=== PATIENT | male | born 1965 | race Caucasian/White ===

== ENCOUNTER → 2018-11-08 | Outpatient (CLI) | payer OTHER, SELFPAY ==
[2018-11-08 17:35] LABS: Absolute Lymphocyte Count 1.33 X10^3/ul (0.83-4.51); Absolute Neutrophil Count 3.2 X10^3/uL (2.0-7.7); Basophil# 0.01 X10^3/uL; Basophil% 0.2 % (0-1); Eosinophil# 0.05 X10^3/uL; Lymphocyte # 1.33 X10^3/ul (4.0); Lymphocyte % 26.6 % (19-41); Mean Corpuscular Hgb 30.2 pg (27.0-32.0); Mean Corpuscular Volume 86.4 fL (80-94); Monocyte# 0.44 X10^3/uL; Monocyte% 8.8 % (0-10); Neutrophil # 3.15 X10^3/uL (2.7-7.7); Platelet Count 204 K/mm3 (150-450); RBC Distribution Width CV 12.2 % (11.6-14.6); RBC Distribution Width SD 37.4 fl (35.1-43.9); Red Blood Count 4.63 M/mm3 (4.6-6.2)
[2018-11-08 17:40] LABS: POSITIVE COUNT NO; POSITIVE DIFFERENTIAL NO; POSITIVE MORPHOLOGY NO
[2018-11-08 17:59] LABS: AST(SGOT) 36 U/L (15-37); Alanine Aminotransfer ALT/SGPT 63 U/L (16-61); Albumin, Serum 3.6 g/dL (3.2-5.0); Alkaline Phosphatase 93 U/L (45-117); Anion Gap 6 (5-15); BUN 17 mg/dL (7-18); Bilirubin, Direct 0.16 mg/dL (0.00-0.30); Calcium,Total 8.5 mg/dL (8.5-10.1); Chloride 105 mmol/L (98-107); EST Glomerular Filtration Rate 82 mL/min (>60); Est Glom Filt Rate - Afr Amer 100 mL/min (>60); Globulin 3.5 g/dL (2.2-4.2); Glucose 138 mg/dL (74-106); Potassium 3.8 mmol/L (3.5-5.1); Protein, Total 7.1 g/dL (6.4-8.2); Sodium Level 139 mmol/L (136-145)
== END | disposition home or self-care (01) ==
LOC: MTLAB 15:56
PROVIDERS: Family Provider Family Medicine; PCP Family Medicine; Referring Provider Dermatology; Visit Provider Dermatology
DX: Z79.899 Other long term (current) drug therapy (principal)
CPT/HCPCS: 36415; 80048; 80076; 85025

== ENCOUNTER → 2018-11-25 | Outpatient (CLI) | payer OTHER, SELFPAY ==
[2018-11-25 17:33] LABS: Absolute Lymphocyte Count 1.47 X10^3/ul (0.83-4.51); Absolute Neutrophil Count 2.8 X10^3/uL (2.0-7.7); Eosinophil# 0.03 X10^3/uL; Eosinophils% 0.6 % (0-5); Hematocrit 39.3 % (40-54); Hemoglobin 13.8 g/dl (13.0-16.5); Lymphocyte # 1.47 X10^3/ul (4.0); Lymphocyte % 30.7 % (19-41); Mean Corp Hgb Conc 35.1 g/gl (32-36); Mean Corpuscular Hgb 30.1 pg (27.0-32.0); Mean Corpuscular Volume 85.6 fL (80-94); Monocyte% 10.4 % (0-10); Neutrophil # 2.78 X10^3/uL (2.7-7.7); Neutrophil % 58.1 % (47-70); Platelet Count 251 K/mm3 (150-450); RBC Distribution Width CV 12.3 % (11.6-14.6); RBC Distribution Width SD 37.1 fl (35.1-43.9); Red Blood Count 4.59 M/mm3 (4.6-6.2); White Blood Count 4.8 K/mm3 (4.4-11.0)
[2018-11-25 17:37] LABS: POSITIVE COUNT NO; POSITIVE DIFFERENTIAL NO; POSITIVE MORPHOLOGY NO
[2018-11-25 17:59] LABS: AST(SGOT) 35 U/L (15-37); Alanine Aminotransfer ALT/SGPT 59 U/L (16-61); Albumin, Serum 3.8 g/dL (3.2-5.0); Alkaline Phosphatase 106 U/L (45-117); Anion Gap 6 (5-15); BUN 14 mg/dL (7-18); BUN/Creat Ratio 15.2 RATIO (10-20); Bilirubin, Direct 0.15 mg/dL (0.00-0.30); Calcium,Total 8.8 mg/dL (8.5-10.1); Chloride 106 mmol/L (98-107); Creatinine, Serum 0.92 mg/dL (0.70-1.30); EST Glomerular Filtration Rate 90 mL/min (>60); Est Glom Filt Rate - Afr Amer 109 mL/min (>60); Globulin 3.7 g/dL (2.2-4.2); Glucose 100 mg/dL (74-106); Potassium 3.7 mmol/L (3.5-5.1); Protein, Total 7.5 g/dL (6.4-8.2); Sodium Level 141 mmol/L (136-145)
== END | disposition home or self-care (01) ==
LOC: MTLAB 16:53
PROVIDERS: Family Provider Family Medicine; PCP Family Medicine; Referring Provider Dermatology; Visit Provider Dermatology
DX: Z79.899 Other long term (current) drug therapy (principal)
CPT/HCPCS: 36415; 80048; 80076; 85025

== ENCOUNTER → 2020-09-04 15:39 | Outpatient (CLI) | payer OTHER, SELFPAY ==
--- NOTE | 2020-09-04 15:42 | RAD_ITS ---
STUDY: X-RAY CHEST REASON FOR EXAM: Male, 55 years old. The patient states no chest complaints. TECHNIQUE: PA and lateral views of the chest. COMPARISON: 11/25/2011. FINDINGS: The lungs are clear and expanded. There is no demonstrated pleural abnormality. Normal size heart. Normal mediastinum and rola. Normal visualized pulmonary arteries. Normal visualized aortic arch and descending thoracic aorta. Normal visualized thoracic spine. Normal visualized ribs, clavicles, and shoulders. There is no demonstrated abnormality of the visualized soft tissue structures of the upper abdomen. RAD/Chest PA and Lateral IMPRESSION: No acute cardiopulmonary disease or major interval change. Electronically Signed: Eric Lopez DO at 16:47 EST Tel [phone], Service support ,
[2020-09-04 18:02] LABS: Absolute Lymphocyte Count 1.65 X10^3/uL (0.83-4.51); Absolute Neutrophil Count 5.6 X10^3/uL (2.0-7.7); Basophil# 0.01 X10^3/uL; Basophil% 0.1 % (0-1); Eosinophil# 0.02 X10^3/uL; Eosinophils% 0.3 % (0-5); Hematocrit 40.9 % (40-54); Lymphocyte # 1.65 X10^3/ul (4.0); Lymphocyte % 20.7 % (19-41); Mean Corp Hgb Conc 34.2 g/dL (32-36); Mean Corpuscular Volume 84.9 fL (80-94); Mean Platelet Vol. 9.8 fl (6.2-12.0); Monocyte% 7.5 % (0-10); NRBC Flagged by Analyzer 0 % (0-5); Neutrophil # 5.64 X10^3/uL (2.7-7.7); Neutrophil % 70.9 % (47-70); Platelet Count 256 K/mm3 (150-450); RBC Distribution Width CV 11.9 % (11.6-14.6); RBC Distribution Width SD 36.1 fl (35.1-43.9); Red Blood Count 4.82 M/mm3 (4.6-6.2)
[2020-09-04 18:15] LABS: Erythrocyte Sedimentation Rate 41 mm/hr (0-20)
[2020-09-04 18:23] LABS: ALB/GLOB Ratio 0.9 RATIO (0.9-2.4); AST(SGOT) 18 U/L (15-37); Alanine Aminotransfer ALT/SGPT 38 U/L (16-61); Albumin, Serum 3.6 g/dL (3.2-5.0); Alkaline Phosphatase 137 U/L (45-117); Anion Gap 8 (5-15); BUN 12 mg/dL (7-18); BUN/Creat Ratio 12.8 RATIO (10-20); Calcium,Total 8.9 mg/dL (8.5-10.1); Chloride 101 mmol/L (98-107); Creatinine, Serum 0.94 mg/dL (0.70-1.30); EST Glomerular Filtration Rate 88 mL/min (>60); Est Glom Filt Rate - Afr Amer 106 mL/min (>60); Globulin 4.1 g/dL (2.2-4.2); Glucose 206 mg/dL (74-106); Potassium 3.9 mmol/L (3.5-5.1); Protein, Total 7.7 g/dL (6.4-8.2); Sodium Level 134 mmol/L (136-145)
[2020-09-05 15:03] LABS: Hepatitis B Surface Antibody Reactive; Hepatitis B Surface Antigen Non-Reactive (Nonreactive); Hepatitis C Antibody Non-Reactive (Nonreactive)
[2020-09-07 03:07] LABS: QNTFERON TB Mitogen Value > 10.00 IU/mL (.); QNTFERON TB Nil Value 0.03 IU/mL (.); QNTFERON TB1+ Ag Value 0.19 IU/mL (.); QNTFERON TB2+ Ag Value 0.15 IU/mL (.)
[2020-09-07 12:27] LABS: CCP IgG Antibodies > 250 units (0-19); QNTIFERON TB Positive Criteria Negative (Negative)
== END ==
PROVIDERS: PCP Family Medicine; Referring Provider Internal Medicine Rheumatology; Visit Provider Internal Medicine Rheumatology
DX: L40.59 Other psoriatic arthropathy (principal); L40.9 Psoriasis, unspecified; L71.9 Rosacea, unspecified; E11.9 Type 2 diabetes mellitus without complications; Z79.899 Other long term (current) drug therapy
CPT/HCPCS: 36415; 71046; 80053; 85025; 85652; 86140; 86200; 86431; 86480; 86706; 86803; 87340

== ENCOUNTER → 2020-11-16 15:25 | Outpatient (CLI) | payer OTHER, SELFPAY ==
[2020-11-16 17:26] LABS: Absolute Neutrophil Count 2.3 X10^3/uL (2.0-7.7); Basophil# 0.01 X10^3/uL; Basophil% 0.2 % (0-1); Eosinophil# 0.03 X10^3/uL; Eosinophils% 0.7 % (0-5); Hematocrit 40.7 % (40-54); Hemoglobin 13.5 g/dL (13.0-16.5); Lymphocyte % 33.9 % (19-41); Mean Corp Hgb Conc 33.2 g/dL (32-36); Mean Corpuscular Hgb 28.8 pg (27.0-32.0); Mean Corpuscular Volume 86.8 fL (80-94); Mean Platelet Vol. 9.8 fl (6.2-12.0); Monocyte# 0.55 X10^3/uL; Monocyte% 12.4 % (0-10); NRBC Flagged by Analyzer 0 % (0-5); Neutrophil % 51.9 % (47-70); Platelet Count 236 K/mm3 (150-450); RBC Distribution Width CV 12.4 % (11.6-14.6); RBC Distribution Width SD 39.4 fl (35.1-43.9); Red Blood Count 4.69 M/mm3 (4.6-6.2); White Blood Count 4.4 K/mm3 (4.4-11.0)
[2020-11-16 17:47] LABS: ALB/GLOB Ratio 1.1 RATIO (0.9-2.4); AST(SGOT) 17 U/L (15-37); Alanine Aminotransfer ALT/SGPT 36 U/L (16-61); Albumin, Serum 3.8 g/dL (3.2-5.0); Alkaline Phosphatase 108 U/L (45-117); Anion Gap 5 (5-15); BUN 15 mg/dL (7-18); BUN/Creat Ratio 17.8 RATIO (10-20); Chloride 104 mmol/L (98-107); Creatinine, Serum 0.84 mg/dL (0.70-1.30); EST Glomerular Filtration Rate 99 mL/min (>60); Est Glom Filt Rate - Afr Amer 120 mL/min (>60); Globulin 3.5 g/dL (2.2-4.2); Glucose 122 mg/dL (74-106); Potassium 3.8 mmol/L (3.5-5.1); Protein, Total 7.3 g/dL (6.4-8.2); Sodium Level 138 mmol/L (136-145)
== END ==
PROVIDERS: PCP Family Medicine; Referring Provider Internal Medicine Rheumatology; Visit Provider Internal Medicine Rheumatology
DX: M05.79 Rheumatoid arthritis with rheumatoid factor of multiple sites without organ or systems involvement (principal); L30.9 Dermatitis, unspecified; L71.9 Rosacea, unspecified; E11.9 Type 2 diabetes mellitus without complications; Z79.899 Other long term (current) drug therapy
CPT/HCPCS: 36415; 80053; 85025

== ENCOUNTER → 2021-02-14 15:33 | Outpatient (CLI) | payer OTHER, SELFPAY ==
[2021-02-14 17:41] LABS: Absolute Neutrophil Count 4.1 X10^3/uL (2.0-7.7); Basophil# 0.01 X10^3/uL; Basophil% 0.2 % (0-1); Eosinophil# 0.02 X10^3/uL; Eosinophils% 0.3 % (0-5); Hemoglobin 13.1 g/dL (13.0-16.5); Lymphocyte % 27.6 % (19-41); Mean Corp Hgb Conc 34.5 g/dL (32-36); Mean Corpuscular Hgb 29.6 pg (27.0-32.0); Mean Platelet Vol. 9.7 fl (6.2-12.0); Monocyte# 0.61 X10^3/uL; Monocyte% 9.4 % (0-10); NRBC Flagged by Analyzer 0 % (0-5); Neutrophil # 4.05 X10^3/uL (2.7-7.7); Platelet Count 275 K/mm3 (150-450); RBC Distribution Width CV 11.9 % (11.6-14.6); RBC Distribution Width SD 36.9 fl (35.1-43.9); Red Blood Count 4.42 M/mm3 (4.6-6.2); White Blood Count 6.5 K/mm3 (4.4-11.0)
[2021-02-14 18:04] LABS: AST(SGOT) 17 U/L (15-37); Alanine Aminotransfer ALT/SGPT 32 U/L (16-61); Albumin, Serum 3.7 g/dL (3.2-5.0); Alkaline Phosphatase 107 U/L (45-117); Anion Gap 9 (5-15); BUN 10 mg/dL (7-18); BUN/Creat Ratio 10.3 RATIO (10-20); Calcium,Total 8.8 mg/dL (8.5-10.1); Chloride 104 mmol/L (98-107); Creatinine, Serum 0.97 mg/dL (0.70-1.30); EST Glomerular Filtration Rate 85 mL/min (>60); Est Glom Filt Rate - Afr Amer 103 mL/min (>60); Globulin 3.7 g/dL (2.2-4.2); Glucose 109 mg/dL (74-106); Potassium 3.3 mmol/L (3.5-5.1); Protein, Total 7.4 g/dL (6.4-8.2); Sodium Level 140 mmol/L (136-145)
== END ==
PROVIDERS: PCP Family Medicine; Referring Provider Internal Medicine Rheumatology; Visit Provider Internal Medicine Rheumatology
DX: M05.79 Rheumatoid arthritis with rheumatoid factor of multiple sites without organ or systems involvement (principal); L30.9 Dermatitis, unspecified; L71.9 Rosacea, unspecified; E11.9 Type 2 diabetes mellitus without complications; Z79.899 Other long term (current) drug therapy
CPT/HCPCS: 36415; 80053; 85025

== ENCOUNTER → 2021-04-17 16:08 | Outpatient (CLI) | payer OTHER, SELFPAY ==
[2021-04-17 17:42] LABS: Absolute Lymphocyte Count 1.86 X10^3/uL (0.83-4.51); Absolute Neutrophil Count 3.5 X10^3/uL (2.0-7.7); Basophil# 0.02 X10^3/uL; Basophil% 0.3 % (0-1); Eosinophil# 0.05 X10^3/uL; Eosinophils% 0.8 % (0-5); Hemoglobin 13.3 g/dL (13.0-16.5); Lymphocyte # 1.86 X10^3/ul (0.83-4.51); Mean Corpuscular Hgb 29.8 pg (27.0-32.0); Mean Platelet Vol. 9.4 fl (6.2-12.0); Monocyte# 0.71 X10^3/uL; Monocyte% 11.5 % (0-10); NRBC Flagged by Analyzer 0 % (0-5); Neutrophil # 3.52 X10^3/uL (2.7-7.7); Neutrophil % 56.8 % (47-70); Platelet Count 240 K/mm3 (150-450); Red Blood Count 4.47 M/mm3 (4.6-6.2); White Blood Count 6.2 K/mm3 (4.4-11.0)
[2021-04-17 18:07] LABS: ALB/GLOB Ratio 0.8 RATIO (0.9-2.4); AST(SGOT) 21 U/L (15-37); Alanine Aminotransfer ALT/SGPT 39 U/L (16-61); Albumin, Serum 3.5 g/dL (3.2-5.0); Alkaline Phosphatase 121 U/L (45-117); Anion Gap 7 (5-15); BUN 13 mg/dL (7-18); BUN/Creat Ratio 15.6 RATIO (10-20); Calcium,Total 9.2 mg/dL (8.5-10.1); Chloride 100 mmol/L (98-107); Cholesterol 183 mg/dL (200); Creatinine, Serum 0.84 mg/dL (0.70-1.30); EST Glomerular Filtration Rate 100 mL/min (>60); Est Glom Filt Rate - Afr Amer 121 mL/min (>60); Globulin 4.6 g/dL (2.2-4.2); Glucose 106 mg/dL (74-106); High Density Lipoprotein 67 mg/dL; Potassium 3.6 mmol/L (3.5-5.1); Protein, Total 8.1 g/dL (6.4-8.2); Sodium Level 134 mmol/L (136-145); Triglycerides 82 mg/dL; Very Low Density Lipoprotein 16 mg/dL (5-40)
== END ==
PROVIDERS: PCP Family Medicine; Referring Provider Internal Medicine Rheumatology; Visit Provider Internal Medicine Rheumatology
DX: M05.79 Rheumatoid arthritis with rheumatoid factor of multiple sites without organ or systems involvement (principal); L60.9 Nail disorder, unspecified; L71.9 Rosacea, unspecified; E11.9 Type 2 diabetes mellitus without complications; Z79.899 Other long term (current) drug therapy
CPT/HCPCS: 36415; 80053; 80061; 85025

== ENCOUNTER → 2021-06-07 15:44 | Outpatient (CLI) | payer OTHER, SELFPAY ==
[2021-06-07 17:51] LABS: Absolute Lymphocyte Count 1.61 X10^3/uL (0.83-4.51); Absolute Neutrophil Count 2.5 X10^3/uL (2.0-7.7); Basophil# 0.02 X10^3/uL; Basophil% 0.4 % (0-1); Eosinophil# 0.09 X10^3/uL; Eosinophils% 1.8 % (0-5); Hematocrit 39.1 % (40-54); Hemoglobin 13.3 g/dL (13.0-16.5); Lymphocyte # 1.61 X10^3/ul (0.83-4.51); Lymphocyte % 32.3 % (19-41); Mean Corpuscular Hgb 29.6 pg (27.0-32.0); Mean Corpuscular Volume 87.1 fL (80-94); Mean Platelet Vol. 9.2 fl (6.2-12.0); Monocyte# 0.72 X10^3/uL; Monocyte% 14.5 % (0-10); NRBC Flagged by Analyzer 0 % (0-5); Neutrophil # 2.52 X10^3/uL (2.7-7.7); Neutrophil % 50.6 % (47-70); Platelet Count 274 K/mm3 (150-450); RBC Distribution Width CV 12.1 % (11.6-14.6); RBC Distribution Width SD 38.8 fl (35.1-43.9); Red Blood Count 4.49 M/mm3 (4.6-6.2)
[2021-06-07 18:21] LABS: ALB/GLOB Ratio 0.8 RATIO (0.9-2.4); AST(SGOT) 17 U/L (15-37); Alanine Aminotransfer ALT/SGPT 35 U/L (16-61); Albumin, Serum 3.4 g/dL (3.2-5.0); Alkaline Phosphatase 113 U/L (45-117); Anion Gap 7 (5-15); BUN 10 mg/dL (7-18); BUN/Creat Ratio 10.4 RATIO (10-20); Calcium,Total 9.1 mg/dL (8.5-10.1); Chloride 102 mmol/L (98-107); Cholesterol 180 mg/dL (200); Creatinine, Serum 0.96 mg/dL (0.70-1.30); EST Glomerular Filtration Rate 85 mL/min (>60); Est Glom Filt Rate - Afr Amer 103 mL/min (>60); Globulin 4.3 g/dL (2.2-4.2); Glucose 98 mg/dL (74-106); High Density Lipoprotein 60 mg/dL; Potassium 4.1 mmol/L (3.5-5.1); Protein, Total 7.7 g/dL (6.4-8.2); Sodium Level 137 mmol/L (136-145); Triglycerides 104 mg/dL; Very Low Density Lipoprotein 21 mg/dL (5-40)
== END ==
PROVIDERS: PCP Family Medicine; Referring Provider Internal Medicine Rheumatology; Visit Provider Internal Medicine Rheumatology
DX: M05.79 Rheumatoid arthritis with rheumatoid factor of multiple sites without organ or systems involvement (principal); L30.9 Dermatitis, unspecified; L71.9 Rosacea, unspecified; E11.9 Type 2 diabetes mellitus without complications; Z79.899 Other long term (current) drug therapy
CPT/HCPCS: 36415; 80053; 80061; 85025

== ENCOUNTER 2021-08-06 16:09 | Outpatient (CLI) | payer OTHER, SELFPAY ==
[2021-08-06 18:01] LABS: Absolute Lymphocyte Count 1.68 X10^3/uL (0.83-4.51); Absolute Neutrophil Count 2.4 X10^3/uL (2.0-7.7); Basophil# 0.02 X10^3/uL; Basophil% 0.4 % (0-1); Eosinophil# 0.04 X10^3/uL; Eosinophils% 0.8 % (0-5); Hemoglobin 13.3 g/dL (13.0-16.5); Lymphocyte # 1.68 X10^3/ul (0.83-4.51); Lymphocyte % 35.7 % (19-41); Mean Corp Hgb Conc 34.1 g/dL (32-36); Mean Corpuscular Hgb 29.2 pg (27.0-32.0); Mean Corpuscular Volume 85.5 fL (80-94); Mean Platelet Vol. 10.4 fl (6.2-12.0); Monocyte% 10.6 % (0-10); NRBC Flagged by Analyzer 0 % (0-5); Neutrophil # 2.44 X10^3/uL (2.7-7.7); Neutrophil % 51.9 % (47-70); Platelet Count 189 K/mm3 (150-450); RBC Distribution Width SD 37.2 fl (35.1-43.9); Red Blood Count 4.56 M/mm3 (4.6-6.2); White Blood Count 4.7 K/mm3 (4.4-11.0)
[2021-08-06 18:36] LABS: AST(SGOT) 27 U/L (15-37); Alanine Aminotransfer ALT/SGPT 43 U/L (16-61); Albumin, Serum 3.8 g/dL (3.2-5.0); Alkaline Phosphatase 97 U/L (45-117); Anion Gap 9 (5-15); BUN 15 mg/dL (7-18); BUN/Creat Ratio 16.8 RATIO (10-20); Calcium,Total 8.8 mg/dL (8.5-10.1); Chloride 103 mmol/L (98-107); Cholesterol 211 mg/dL (200); Creatinine, Serum 0.89 mg/dL (0.70-1.30); EST Glomerular Filtration Rate 93 mL/min (>60); Est Glom Filt Rate - Afr Amer 112 mL/min (>60); Globulin 3.8 g/dL (2.2-4.2); Glucose 96 mg/dL (74-106); High Density Lipoprotein 67 mg/dL; Potassium 4.2 mmol/L (3.5-5.1); Protein, Total 7.6 g/dL (6.4-8.2); Sodium Level 140 mmol/L (136-145); Triglycerides 91 mg/dL; Very Low Density Lipoprotein 18 mg/dL (5-40)
== END 2021-08-06 23:59 | disposition short-term general hospital (02) ==
LOC: MTLAB 16:10
PROVIDERS: PCP Family Medicine; Referring Provider Internal Medicine Rheumatology; Visit Provider Internal Medicine Rheumatology
DX: M05.79 Rheumatoid arthritis with rheumatoid factor of multiple sites without organ or systems involvement (principal); E11.9 Type 2 diabetes mellitus without complications; L30.9 Dermatitis, unspecified; L71.9 Rosacea, unspecified; Z79.899 Other long term (current) drug therapy
CPT/HCPCS: 36415; 80053; 80061; 85025

== ENCOUNTER 2021-11-19 15:57 | Outpatient (CLI) | payer OTHER, SELFPAY ==
[2021-11-19 17:37] LABS: Absolute Lymphocyte Count 2.13 X10^3/uL (0.83-4.51); Absolute Neutrophil Count 1.8 X10^3/uL (2.0-7.7); Basophil# 0.01 X10^3/uL; Basophil% 0.2 % (0-1); Eosinophil# 0.05 X10^3/uL; Eosinophils% 1.1 % (0-5); Hematocrit 35.6 % (40-54); Hemoglobin 12.3 g/dL (13.0-16.5); Lymphocyte # 2.13 X10^3/ul (0.83-4.51); Lymphocyte % 47.1 % (19-41); Mean Corp Hgb Conc 34.6 g/dL (32-36); Mean Corpuscular Hgb 29.4 pg (27.0-32.0); Mean Platelet Vol. 9.4 fl (6.2-12.0); Monocyte# 0.48 X10^3/uL; Monocyte% 10.6 % (0-10); NRBC Flagged by Analyzer 0 % (0-5); Neutrophil # 1.83 X10^3/uL (2.7-7.7); Neutrophil % 40.6 % (47-70); Platelet Count 217 K/mm3 (150-450); RBC Distribution Width SD 37.1 fl (35.1-43.9); Red Blood Count 4.19 M/mm3 (4.6-6.2); White Blood Count 4.5 K/mm3 (4.4-11.0)
[2021-11-19 17:51] LABS: AST(SGOT) 17 U/L (15-37); Alanine Aminotransfer ALT/SGPT 26 U/L (16-61); Albumin, Serum 3.6 g/dL (3.2-5.0); Alkaline Phosphatase 100 U/L (45-117); Anion Gap 4 (5-15); BUN 16 mg/dL (7-18); BUN/Creat Ratio 16.6 RATIO (10-20); Chloride 105 mmol/L (98-107); Creatinine, Serum 0.96 mg/dL (0.70-1.30); EST Glomerular Filtration Rate 85 mL/min (>60); Est Glom Filt Rate - Afr Amer 103 mL/min (>60); Globulin 3.7 g/dL (2.2-4.2); Glucose 125 mg/dL (74-106); Potassium 3.9 mmol/L (3.5-5.1); Protein, Total 7.3 g/dL (6.4-8.2); Sodium Level 137 mmol/L (136-145)
== END 2021-11-19 23:59 | disposition home or self-care (01) ==
LOC: MTLAB 15:59
PROVIDERS: PCP Family Medicine; Referring Provider Internal Medicine Rheumatology; Visit Provider Internal Medicine Rheumatology
DX: M05.79 Rheumatoid arthritis with rheumatoid factor of multiple sites without organ or systems involvement (principal); E11.9 Type 2 diabetes mellitus without complications; L30.9 Dermatitis, unspecified; L71.9 Rosacea, unspecified; Z79.899 Other long term (current) drug therapy
CPT/HCPCS: 36415; 80053; 85025

== ENCOUNTER → 2022-01-23 | Outpatient (CLI) | payer OTHER, SELFPAY ==
[2022-01-23 17:38] LABS: Absolute Lymphocyte Count 1.78 X10^3/uL (0.83-4.51); Absolute Neutrophil Count 2.6 X10^3/uL (2.0-7.7); Basophil# 0.01 X10^3/uL; Basophil% 0.2 % (0-1); Eosinophil# 0.06 X10^3/uL; Eosinophils% 1.2 % (0-5); Hematocrit 35.5 % (40-54); Hemoglobin 12.3 g/dL (13.0-16.5); Lymphocyte # 1.78 X10^3/ul (0.83-4.51); Lymphocyte % 36.6 % (19-41); Mean Corp Hgb Conc 34.6 g/dL (32-36); Mean Corpuscular Hgb 29.9 pg (27.0-32.0); Mean Corpuscular Volume 86.4 fL (80-94); Mean Platelet Vol. 9.7 fl (6.2-12.0); Monocyte# 0.42 X10^3/uL; Monocyte% 8.6 % (0-10); NRBC Flagged by Analyzer 0 % (0-5); Neutrophil # 2.57 X10^3/uL (2.7-7.7); Platelet Count 235 K/mm3 (150-450); RBC Distribution Width CV 11.9 % (11.6-14.6); RBC Distribution Width SD 38.1 fl (35.1-43.9); Red Blood Count 4.11 M/mm3 (4.6-6.2); White Blood Count 4.9 K/mm3 (4.4-11.0)
[2022-01-23 17:53] LABS: AST(SGOT) 17 U/L (15-37); Alanine Aminotransfer ALT/SGPT 25 U/L (16-61); Albumin, Serum 3.6 g/dL (3.2-5.0); Alkaline Phosphatase 104 U/L (45-117); Anion Gap 3 (5-15); BUN 9 mg/dL (7-18); BUN/Creat Ratio 9.8 RATIO (10-20); Chloride 107 mmol/L (98-107); Creatinine, Serum 0.92 mg/dL (0.70-1.30); EST Glomerular Filtration Rate 90 mL/min (>60); Est Glom Filt Rate - Afr Amer 109 mL/min (>60); Globulin 3.6 g/dL (2.2-4.2); Glucose 92 mg/dL (74-106); Potassium 3.8 mmol/L (3.5-5.1); Protein, Total 7.2 g/dL (6.4-8.2); Sodium Level 139 mmol/L (136-145)
== END | disposition home or self-care (01) ==
LOC: MTLAB 15:34
PROVIDERS: PCP Family Medicine; Referring Provider Internal Medicine Rheumatology; Visit Provider Internal Medicine Rheumatology
DX: M05.79 Rheumatoid arthritis with rheumatoid factor of multiple sites without organ or systems involvement (principal); E11.9 Type 2 diabetes mellitus without complications; Z79.899 Other long term (current) drug therapy; L30.9 Dermatitis, unspecified; L71.9 Rosacea, unspecified
CPT/HCPCS: 36415; 80053; 85025

== ENCOUNTER → 2022-04-22 | Outpatient (CLI) | payer OTHER, SELFPAY ==
[2022-04-22 17:44] LABS: Absolute Lymphocyte Count 1.48 X10^3/uL (0.83-4.51); Absolute Neutrophil Count 1.8 X10^3/uL (2.0-7.7); Basophil# 0.01 X10^3/uL; Basophil% 0.3 % (0-1); Eosinophil# 0.03 X10^3/uL; Eosinophils% 0.8 % (0-5); Hematocrit 39.2 % (40-54); Hemoglobin 13.4 g/dL (13.0-16.5); Lymphocyte # 1.48 X10^3/ul (0.83-4.51); Lymphocyte % 39.2 % (19-41); Mean Corp Hgb Conc 34.2 g/dL (32-36); Mean Corpuscular Volume 87.7 fL (80-94); Mean Platelet Vol. 9.2 fl (6.2-12.0); Monocyte# 0.49 X10^3/uL; NRBC Flagged by Analyzer 0 % (0-5); Neutrophil # 1.75 X10^3/uL (2.7-7.7); Neutrophil % 46.2 % (47-70); Platelet Count 242 K/mm3 (150-450); RBC Distribution Width CV 12.2 % (11.6-14.6); RBC Distribution Width SD 39.3 fl (35.1-43.9); Red Blood Count 4.47 M/mm3 (4.6-6.2); White Blood Count 3.8 K/mm3 (4.4-11.0)
[2022-04-22 18:38] LABS: ALB/GLOB Ratio 0.9 RATIO (0.9-2.4); AST(SGOT) 19 U/L (15-37); Alanine Aminotransfer ALT/SGPT 26 U/L (16-61); Albumin, Serum 3.7 g/dL (3.2-5.0); Alkaline Phosphatase 104 U/L (45-117); Anion Gap 8 (5-15); BUN 14 mg/dL (7-18); BUN/Creat Ratio 15.3 RATIO (10-20); Calcium,Total 9.6 mg/dL (8.5-10.1); Chloride 105 mmol/L (98-107); Creatinine, Serum 0.92 mg/dL (0.70-1.30); EST Glomerular Filtration Rate 90 mL/min (>60); Est Glom Filt Rate - Afr Amer 109 mL/min (>60); Glucose 99 mg/dL (74-106); Potassium 3.9 mmol/L (3.5-5.1); Protein, Total 7.7 g/dL (6.4-8.2); Sodium Level 140 mmol/L (136-145)
== END | disposition home or self-care (01) ==
LOC: MTLAB 16:01
PROVIDERS: PCP Family Medicine; Referring Provider Internal Medicine Rheumatology; Visit Provider Internal Medicine Rheumatology
DX: M05.79 Rheumatoid arthritis with rheumatoid factor of multiple sites without organ or systems involvement (principal); E11.9 Type 2 diabetes mellitus without complications; L30.9 Dermatitis, unspecified; L71.9 Rosacea, unspecified; Z79.899 Other long term (current) drug therapy
CPT/HCPCS: 36415; 80053; 85025

== ENCOUNTER → 2022-07-18 | Outpatient (CLI) | payer OTHER, SELFPAY ==
[2022-07-18 17:43] LABS: Absolute Neutrophil Count 1.6 X10^3/uL (2.0-7.7); Basophil# 0.02 X10^3/uL; Basophil% 0.5 % (0-1); Eosinophil# 0.03 X10^3/uL; Eosinophils% 0.7 % (0-5); Hematocrit 39.2 % (40-54); Hemoglobin 12.8 g/dL (13.0-16.5); Lymphocyte % 40.9 % (19-41); Mean Corp Hgb Conc 32.7 g/dL (32-36); Mean Corpuscular Hgb 29.6 pg (27.0-32.0); Mean Corpuscular Volume 90.7 fL (80-94); Mean Platelet Vol. 9.3 fl (6.2-12.0); Monocyte# 0.74 X10^3/uL; Monocyte% 17.8 % (0-10); NRBC Flagged by Analyzer 0 % (0-5); Neutrophil # 1.62 X10^3/uL (2.7-7.7); Neutrophil % 38.9 % (47-70); Platelet Count 337 K/mm3 (150-450); RBC Distribution Width CV 12.3 % (11.6-14.6); RBC Distribution Width SD 40.7 fl (35.1-43.9); Red Blood Count 4.32 M/mm3 (4.6-6.2); White Blood Count 4.2 K/mm3 (4.4-11.0)
[2022-07-18 18:17] LABS: AST(SGOT) 16 U/L (15-37); Alanine Aminotransfer ALT/SGPT 29 U/L (16-61); Albumin, Serum 3.5 g/dL (3.2-5.0); Alkaline Phosphatase 115 U/L (45-117); Anion Gap 6 (5-15); BUN 15 mg/dL (7-18); BUN/Creat Ratio 11.3 RATIO (10-20); Calcium,Total 8.8 mg/dL (8.5-10.1); Chloride 103 mmol/L (98-107); Creatinine, Serum 1.33 mg/dL (0.70-1.30); EST Glomerular Filtration Rate 58 mL/min (>60); Est Glom Filt Rate - Afr Amer 71 mL/min (>60); Globulin 3.6 g/dL (2.2-4.2); Glucose 111 mg/dL (74-106); Potassium 4.6 mmol/L (3.5-5.1); Protein, Total 7.1 g/dL (6.4-8.2); Sodium Level 140 mmol/L (136-145)
== END | disposition home or self-care (01) ==
LOC: MTLAB 16:00
PROVIDERS: PCP Family Medicine; Referring Provider Internal Medicine Rheumatology; Visit Provider Internal Medicine Rheumatology
DX: M05.79 Rheumatoid arthritis with rheumatoid factor of multiple sites without organ or systems involvement (principal); E11.9 Type 2 diabetes mellitus without complications; L30.9 Dermatitis, unspecified; L71.9 Rosacea, unspecified; Z79.899 Other long term (current) drug therapy
CPT/HCPCS: 36415; 80053; 85025

== ENCOUNTER → 2022-10-27 | Outpatient (CLI) | payer OTHER, SELFPAY ==
[2022-10-27 17:56] LABS: Absolute Lymphocyte Count 1.79 X10^3/uL (0.83-4.51); Absolute Neutrophil Count 2.8 X10^3/uL (2.0-7.7); Basophil# 0.02 X10^3/uL; Basophil% 0.4 % (0-1); Eosinophil# 0.06 X10^3/uL; Eosinophils% 1.1 % (0-5); Hematocrit 37.6 % (40-54); Hemoglobin 12.4 g/dL (13.0-16.5); Lymphocyte # 1.79 X10^3/ul (0.83-4.51); Lymphocyte % 33.5 % (19-41); Mean Corpuscular Hgb 29.1 pg (27.0-32.0); Mean Corpuscular Volume 88.3 fL (80-94); Mean Platelet Vol. 9.3 fl (6.2-12.0); Monocyte# 0.62 X10^3/uL; Monocyte% 11.6 % (0-10); NRBC Flagged by Analyzer 0 % (0-5); Neutrophil # 2.75 X10^3/uL (2.7-7.7); Neutrophil % 51.5 % (47-70); Platelet Count 279 K/mm3 (150-450); RBC Distribution Width CV 12.7 % (11.6-14.6); RBC Distribution Width SD 40.9 fl (35.1-43.9); Red Blood Count 4.26 M/mm3 (4.6-6.2); White Blood Count 5.3 K/mm3 (4.4-11.0)
[2022-10-27 18:48] LABS: ALB/GLOB Ratio 0.9 RATIO (0.9-2.4); AST(SGOT) 18 U/L (15-37); Alanine Aminotransfer ALT/SGPT 23 U/L (16-61); Albumin, Serum 3.4 g/dL (3.2-5.0); Alkaline Phosphatase 101 U/L (45-117); Anion Gap 5 (5-15); BUN 19 mg/dL (7-18); BUN/Creat Ratio 18.6 RATIO (10-20); Calcium,Total 9.4 mg/dL (8.5-10.1); Chloride 102 mmol/L (98-107); Creatinine, Serum 1.02 mg/dL (0.70-1.30); EST Glomerular Filtration Rate 79 mL/min (>60); Est Glom Filt Rate - Afr Amer 96 mL/min (>60); Globulin 3.9 g/dL (2.2-4.2); Glucose 118 mg/dL (74-106); Potassium 4.5 mmol/L (3.5-5.1); Protein, Total 7.3 g/dL (6.4-8.2); Sodium Level 135 mmol/L (136-145)
== END | disposition home or self-care (01) ==
PROVIDERS: PCP Family Medicine; Referring Provider Internal Medicine Rheumatology; Visit Provider Internal Medicine Rheumatology
DX: M05.79 Rheumatoid arthritis with rheumatoid factor of multiple sites without organ or systems involvement (principal); E11.9 Type 2 diabetes mellitus without complications; L30.9 Dermatitis, unspecified; L71.9 Rosacea, unspecified; Z79.899 Other long term (current) drug therapy
CPT/HCPCS: 36415; 80053; 85025

== ENCOUNTER → 2022-11-12 | Outpatient (CLI) | payer OTHER, SELFPAY ==
[2022-11-16 08:30] LABS: G6PD Quant Test 229 (127-427)
== END | disposition home or self-care (01) ==
LOC: MTLAB 17:01
PROVIDERS: PCP Family Medicine; Referring Provider Internal Medicine Rheumatology; Visit Provider Internal Medicine Rheumatology
DX: M05.79 Rheumatoid arthritis with rheumatoid factor of multiple sites without organ or systems involvement (principal); Z79.899 Other long term (current) drug therapy
CPT/HCPCS: 36415; 82955

== ENCOUNTER → 2023-01-06 | Outpatient (CLI) | payer OTHER, SELFPAY ==
[2023-01-06 17:49] LABS: Absolute Lymphocyte Count 1.45 X10^3/uL (0.83-4.51); Absolute Neutrophil Count 2.5 X10^3/uL (2.0-7.7); Basophil# 0.01 X10^3/uL; Basophil% 0.2 % (0-1); Eosinophil# 0.03 X10^3/uL; Eosinophils% 0.7 % (0-5); Hematocrit 36.3 % (40-54); Lymphocyte # 1.45 X10^3/ul (0.83-4.51); Lymphocyte % 32.3 % (19-41); Mean Corp Hgb Conc 33.1 g/dL (32-36); Mean Corpuscular Hgb 30.1 pg (27.0-32.0); Mean Platelet Vol. 9.1 fl (6.2-12.0); Monocyte% 11.1 % (0-10); NRBC Flagged by Analyzer 0 % (0-5); Neutrophil # 2.47 X10^3/uL (2.7-7.7); Platelet Count 252 K/mm3 (150-450); RBC Distribution Width CV 12.9 % (11.6-14.6); RBC Distribution Width SD 42.5 fl (35.1-43.9); Red Blood Count 3.99 M/mm3 (4.6-6.2); White Blood Count 4.5 K/mm3 (4.4-11.0)
[2023-01-06 18:37] LABS: ALB/GLOB Ratio 1.1 RATIO (0.9-2.4); AST(SGOT) 19 U/L (15-37); Alanine Aminotransfer ALT/SGPT 20 U/L (16-61); Albumin, Serum 3.7 g/dL (3.2-5.0); Alkaline Phosphatase 119 U/L (45-117); Anion Gap 4 (5-15); BUN 15 mg/dL (7-18); BUN/Creat Ratio 17.4 RATIO (10-20); Calcium,Total 8.7 mg/dL (8.5-10.1); Chloride 108 mmol/L (98-107); Creatinine, Serum 0.86 mg/dL (0.70-1.30); EST Glomerular Filtration Rate 96 mL/min (>60); Est Glom Filt Rate - Afr Amer 117 mL/min (>60); Globulin 3.4 g/dL (2.2-4.2); Glucose 108 mg/dL (74-106); Potassium 3.7 mmol/L (3.5-5.1); Protein, Total 7.1 g/dL (6.4-8.2); Sodium Level 136 mmol/L (136-145)
== END | disposition home or self-care (01) ==
LOC: MTLAB 16:14
PROVIDERS: PCP Family Medicine; Referring Provider Internal Medicine Rheumatology; Visit Provider Internal Medicine Rheumatology
DX: M05.79 Rheumatoid arthritis with rheumatoid factor of multiple sites without organ or systems involvement (principal); Z79.899 Other long term (current) drug therapy
CPT/HCPCS: 36415; 80053; 85025

== ENCOUNTER → 2023-03-31 | Outpatient (CLI) | payer OTHER, SELFPAY ==
[2023-03-31 17:34] LABS: Absolute Neutrophil Count 1.8 X10^3/uL (2.0-7.7); Basophil# 0.01 X10^3/uL; Basophil% 0.2 % (0-1); Eosinophil# 0.06 X10^3/uL; Eosinophils% 1.4 % (0-5); Hematocrit 37.9 % (40-54); Hemoglobin 12.9 g/dL (13.0-16.5); Lymphocyte % 40.4 % (19-41); Mean Corpuscular Hgb 30.2 pg (27.0-32.0); Mean Corpuscular Volume 88.8 fL (80-94); Mean Platelet Vol. 9.3 fl (6.2-12.0); Monocyte# 0.59 X10^3/uL; NRBC Flagged by Analyzer 0 % (0-5); Neutrophil # 1.81 X10^3/uL (2.7-7.7); Platelet Count 223 K/mm3 (150-450); RBC Distribution Width CV 11.9 % (11.6-14.6); RBC Distribution Width SD 38.3 fl (35.1-43.9); Red Blood Count 4.27 M/mm3 (4.6-6.2); White Blood Count 4.2 K/mm3 (4.4-11.0)
[2023-03-31 17:46] LABS: ALB/GLOB Ratio 1.1 RATIO (0.9-2.4); AST(SGOT) 20 U/L (15-37); Alanine Aminotransfer ALT/SGPT 23 U/L (16-61); Albumin, Serum 3.8 g/dL (3.2-5.0); Alkaline Phosphatase 110 U/L (45-117); Anion Gap 6 (5-15); BUN 13 mg/dL (7-18); BUN/Creat Ratio 12.5 RATIO (10-20); Chloride 104 mmol/L (98-107); Creatinine, Serum 1.04 mg/dL (0.70-1.30); EST Glomerular Filtration Rate 77 mL/min (>60); Est Glom Filt Rate - Afr Amer 94 mL/min (>60); Globulin 3.4 g/dL (2.2-4.2); Glucose 94 mg/dL (74-106); Protein, Total 7.2 g/dL (6.4-8.2); Sodium Level 138 mmol/L (136-145)
== END | disposition home or self-care (01) ==
LOC: MTLAB 15:51
PROVIDERS: PCP Family Medicine; Referring Provider Internal Medicine Rheumatology; Visit Provider Internal Medicine Rheumatology
DX: M05.79 Rheumatoid arthritis with rheumatoid factor of multiple sites without organ or systems involvement (principal); Z79.899 Other long term (current) drug therapy
CPT/HCPCS: 36415; 80053; 85025

== ENCOUNTER → 2023-07-02 | Outpatient (CLI) | payer OTHER, SELFPAY ==
[2023-07-02 17:49] LABS: Absolute Lymphocyte Count 1.75 X10^3/uL (0.83-4.51); Absolute Neutrophil Count 3.1 X10^3/uL (2.0-7.7); Basophil# 0.05 X10^3/uL; Basophil% 0.9 % (0-1); Eosinophil# 0.04 X10^3/uL; Eosinophils% 0.7 % (0-5); Hematocrit 37.9 % (40-54); Hemoglobin 12.9 g/dL (13.0-16.5); Lymphocyte # 1.75 X10^3/ul (0.83-4.51); Lymphocyte % 30.4 % (19-41); Mean Corpuscular Hgb 30.2 pg (27.0-32.0); Mean Corpuscular Volume 88.8 fL (80-94); Monocyte# 0.69 X10^3/uL; NRBC Flagged by Analyzer 0 % (0-5); Neutrophil # 3.07 X10^3/uL (2.7-7.7); Neutrophil % 53.4 % (47-70); Platelet Count 289 K/mm3 (150-450); RBC Distribution Width CV 12.1 % (11.6-14.6); RBC Distribution Width SD 39.1 fl (35.1-43.9); Red Blood Count 4.27 M/mm3 (4.6-6.2); White Blood Count 5.8 K/mm3 (4.4-11.0)
[2023-07-02 18:21] LABS: ALB/GLOB Ratio 0.9 RATIO (0.9-2.4); AST(SGOT) 21 U/L (15-37); Alanine Aminotransfer ALT/SGPT 29 U/L (16-61); Albumin, Serum 3.5 g/dL (3.2-5.0); Alkaline Phosphatase 128 U/L (45-117); Anion Gap 5 (5-15); BUN 17 mg/dL (7-18); BUN/Creat Ratio 15.9 RATIO (10-20); Calcium,Total 9.2 mg/dL (8.5-10.1); Chloride 104 mmol/L (98-107); Creatinine, Serum 1.07 mg/dL (0.70-1.30); EST Glomerular Filtration Rate 75 mL/min (>60); Est Glom Filt Rate - Afr Amer 91 mL/min (>60); Glucose 116 mg/dL (74-106); Potassium 3.9 mmol/L (3.5-5.1); Protein, Total 7.5 g/dL (6.4-8.2); Sodium Level 137 mmol/L (136-145)
== END | disposition home or self-care (01) ==
PROVIDERS: PCP Family Medicine; Referring Provider Internal Medicine Rheumatology; Visit Provider Internal Medicine Rheumatology
DX: M05.70 Rheumatoid arthritis with rheumatoid factor of unspecified site without organ or systems involvement (principal); E11.9 Type 2 diabetes mellitus without complications; L30.9 Dermatitis, unspecified; Z79.899 Other long term (current) drug therapy
CPT/HCPCS: 36415; 80053; 85025

== ENCOUNTER → 2023-08-28 | Outpatient (CLI) | payer OTHER, SELFPAY ==
--- OUTSIDE RECORDS SUMMARY | 2023-08-28 16:38 | XMS RPT_ITS | CCD ---
Author Name Unknown Address [address] [place] [address] Organization [facility] Care Team Providers Care Supervisor Photostat Name Role Phone Sharif Dash Primary Care Provider PROVIDER, UNKNOWN Referring Unavailable Sharif Dash Primary Care Unavailable Khanh Jade Attending Unavailable PROVIDER, UNKNOWN Referring Unavailable Sharif Dash Primary Care Unavailable JulianBranden donald Attending Unavailable Jimmy, Shanita Attending Unavailable Sharif Dash Primary Care Unavailable PROVIDER, UNKNOWN Referring Unavailable Mario An DO Primary Care Provider [phone] Mario An DO Primary Care Provider [phone] TAL CABRERA Attending Unavailable JUSTINA, MARIO Primary Care Unavailable TAL CABRERA Attending Unavailable MARIO AN Primary Care Unavailable MARIO AN Attending Unavailable MARIO AN Primary Care Unavailable SHANITA COURTNEY Admitting Unavailable SHANITA COURTNEY Attending Unavailable SHARIF DASH Primary Care Unavailable SHARIF DASH Attending Unavailable SHARIF DASH Primary Care Unavailable Medications Current Medications Medication Drug Class(es) Dates Sig (Normalized) Sig (Original) acetaminophen 250 mg / ibuprofen 125 mg oral tablet (3 sources) Nonsteroidal Anti-inflammatory Drug Start: 07-16-2020 Ibuprofen-Acetaminophen (ADVIL DUAL ACTION) 125-250 MG TABS 0.4 ml adalimumab 100 mg/ml auto-injector (1 source) Tumor Necrosis Factor Kennedi Start: 10-31-2020 HUMIRA PEN 40 MG/0.4ML PNKT INJECT 40MG SUBCUTANEOUSLY EVERY OTHER WEEK 0 10/31/2020 Active atorvastatin 10 mg oral tablet (7 sources) HMG-CoA Reductase Inhibitor Start: 08-27-2022 End: 10-14-2023 take 1 tablet by mouth once daily atorvastatin (Lipitor) 10 MG tablet Indications: Hypercholesterolemia Take 1 tablet (10 mg) by mouth daily. 90 tablet 1 04/17/2023 10/14/2023 Active Completed/Discontinued Medications Medication Drug Class(es) Dates Sig (Normalized) Sig (Original) acetaminophen 325 mg / HYDROcodone bitartrate 5 mg oral tablet (1 source) Opioid Agonist Start: 07-08-2020 End: 07-08-2020 HYDROcodone-acetamin ophen (NORCO) 5-325 MG per tablet 1 tablet betamethasone 0.0005 mg/mg topical ointment (13 sources) Corticosteroid Start: 11-10-2016 End: 07-08-2020 betamethasone dipropionate (DIPROLENE) 0.05 % ointment Apply 1 g topically 2 times daily Apply topically 2 times daily. 50 g 1 11/10/2016 07/08/2020 Discontinued (LIST CLEANUP) Problems Active Problems Problem Classification Problem Date Documented Date Episodic/Chronic Diabetes mellitus without complication (11 sources) Type 2 diabetes mellitus without complications; Translations: [Type 2 diabetes mellitus without complication] Onset: 10-01-2021 Chronic Disorders of lipid metabolism (10 sources) Hyperlipidemia, unspecified; Translations: [Hypercholesterolemia ] Onset: 10-01-2021 Chronic Other aftercare (4 sources) Patient encounter status; Translations: [Encounter for therapeutic drug level monitoring] 07-14-2023 Episodic Other aftercare (2 sources) Encounter for therapeutic drug level monitoring; Translations: [Encounter for therapeutic drug level monitoring] Onset: 07-14-2023 Episodic Other aftercare (2 sources) 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-steroidal anti-inflammatories (NSAID); Translations: [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-steroidal anti-inflammatories (nsaid)] Onset: 07-14-2023 Episodic Other connective tissue disease (2 sources) Presence of unspecified orthopedic joint implant; Translations: [Presence of unspecified orthopedic joint implant] Onset: 10-01-2021 Chronic Other connective tissue disease (1 source) Bursitis of right shoulder; Translations: [Bursitis of right shoulder] Episodic Other inflammatory condition of skin (14 sources) Psoriasis; Translations: [Psoriasis, unspecified] Onset: 10-26-2015 10-26-2015 Chronic Other inflammatory condition of skin (4 sources) Psoriasis, unspecified; Translations: [Psoriasis, unspecified] Onset: 10-01-2021 Chronic Other screening for suspected conditions (not mental disorders or infectious disease) (4 sources) Encounter for screening for malignant neoplasm of colon; Translations: [Encounter for screening for malignant neoplasm of prostate] Onset: 07-14-2023 Episodic Other upper respiratory disease (2 sources) Other specified disorders of nose and nasal sinuses; Translations: [Other specified disorders of nose and nasal sinuses] Onset: 05-06-2022 Episodic Other upper respiratory infections (8 sources) Chronic maxillary sinusitis; Translations: [Chronic ethmoidal sinusitis] Onset: 05-06-2022 Chronic Otitis media and related conditions (6 sources) Infection of ear; Translations: [Otitis media, unspecified, left ear] Onset: 10-01-2021 Episodic Residual codes; unclassified (3 sources) History of colonoscopy; Translations: [Other specified postprocedural states] Onset: 07-14-2023 07-14-2023 Episodic Rheumatoid arthritis and related disease (19 sources) Rheumatoid arthritis; Translations: [Rheumatoid arthritis, unspecified] Onset: 10-26-2015 10-26-2015 Chronic Unclassified (5 sources) Sprain of right wrist; Translations: [Right wrist sprain, initial encounter] Onset: 07-08-2020 07-08-2020 Unclassified (1 source) Patient encounter status; Translations: [Encounter for imaging to screen for metal prior to MRI] Unclassified (1 source) Family history of colon polyps, unspecified; Translations: [Family history of colon polyps, unspecified] Onset: 05-16-2022 Past or Other Problems Problem Classification Problem Date Documented Da te Episodic/Chronic Other aftercare (2 sources) rat exterminator (current) use of oral hypoglycemic drugs; Translations: [nursing home (current) use of oral hypoglycemic drugs] Onset: 10-01-2021 Episodic Other aftercare (2 sources) rat exterminator (current) use of systemic steroids; Translations: [rat exterminator (current) use of systemic steroids] Onset: 10-01-2021 Episodic Other aftercare (2 sources) Other marine 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 terminal 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) 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 therapy; Translations: [Other marine 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 terminal 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) drug therapy] Onset: 10-01-2021 Episodic Other ear and sense organ disorders (2 sources) Otalgia, left ear; Translations: [Otalgia, left ear] Onset: 10-01-2021 Episodic Other injuries and conditions due to external causes (2 sources) Other injury of unspecified body region, initial encounter; Translations: [Other injury of unspecified body region, initial encounter] Onset: 12-24-2022 Episodic Other upper respiratory disease (2 sources) Deviated nasal septum; Translations: [Deviated nasal septum] Onset: 08-28-2022 Episodic Other upper respiratory disease (2 sources) Hypertrophy of nasal turbinates; Translations: [Hypertrophy of nasal turbinates] Onset: 08-28-2022 Episodic Residual codes; unclassified (15 sources) Family history of polyp of colon; Translations: [Family history of colonic polyps] Onset: 07-20-2020 07-20-2020 Episodic Residual codes; unclassified (1 source) Family history of colonic polyps; Translations: [Family history of colonic polyps] Onset: 05-16-2022 Episodic Screening and history of mental health and substance abuse codes (2 sources) Personal history of nicotine dependence; Translations: [Personal history of nicotine dependence] Onset: 10-01-2021 Episodic Sprains and strains (20 sources) Shoulder strain; Translations: [Strain of muscle of upper limb] Onset: 07-08-2020 Resolved: 12-24-2022 07-08-2020 Episodic Unclassified (1 source) Family history of colon polyps, unspecified; Translations: [Family history of colon polyps, unspecified] Onset: 07-14-2023 Results Test Name Value Interpretation Reference Range Facil ity Vital Signs Date Time Vital Sign Value Performing Clinician Faci lity 07-14-2023 07:32-0500 Body height 172.7 cm Mario An [employer] Work Phone: [employer] 07-14-2023 07:32-0500 Body mass index (BMI) [Ratio] 27.52 kg/m2 Mario An [employer] Work Phone: [employer] 07-14-2023 07:32-0500 Body temperature 97.39 [degF] Mario An DO Work Phone: [employer] 07-14-2023 07:32-0500 Body weight 82.1 kg Mario Tysonjanashabana CATALAN Work Phone: [employer] 07-14-2023 07:32-0500 Diastolic blood pressure 60 mm[Hg] Mario An DO Work Phone: [facility] 07-14-2023 07:32-0500 Heart rate 88 /min Mario An DO Work Phone: [facility] 07-14-2023 07:32-0500 SaO2% (BldA) [Mass fraction] 96 % Mario An DO Work Phone: [facility] 07-14-2023 07:32-0500 Systolic blood pressure 120 mm[Hg] Mario An DO Work Phone: [facility] 04-17-2023 07:05-0400 Body height 172.7 cm Tal Johnsono PA-C Work Phone: [facility] 04-17-2023 07:05-0400 Body mass index (BMI) [Ratio] 28.07 kg/m2 Tal Cabrera PA-C Work Phone: [facility] 04-17-2023 07:05-0400 Body temperature 98.2 [degF] Tal Cabrera PA-C Work Phone: [facility] 04-17-2023 07:05-0400 Body weight 83.73 kg Tal Cabrera PA-C Work Phone: [facility] 04-17-2023 07:05-0400 Diastolic blood pressure 79 mm[Hg] Tal Johnsono PA-C Work Phone: [facility] 04-17-2023 07:05-0400 Heart rate 80 /min Tal Cabrera PA-C Work Phone: [facility] 04-17-2023 07:05-0400 SaO2% (BldA) [Mass fraction] 97 % Tal Cabrera PA-C Work Phone: [facility] 04-17-2023 07:05-0400 Systolic blood pressure 130 mm[Hg] Tal Cabrera PA-C Work Phone: [facility] 10-01-2021 17:30-0500 Body height 172.7 cm Khanh Jade MD Work Phone: [facility] 10-01-2021 17:30-0500 Body mass index (BMI) [Ratio] 27.37 kg/m2 Khanh Jade MD Work Phone: [facility] 10-01-2021 17:30-0500 Body temperature 99.5 [degF] Khanh Jade MD Work Phone: [facility] 10-01-2021 17:30-0500 Body weight 81.65 kg Khanh Jade MD Work Phone: [facility] 10-01-2021 17:30-0500 Diastolic blood pressure 85 mm[Hg] Khanh Jade MD Work Phone: [facility] 10-01-2021 17:30-0500 Heart rate 93 /min Khahn Jade MD Work Phone: [facility] 10-01-2021 17:30-0500 Respiratory rate 16 /min Khanh Jade MD Work Phone: [facility] 10-01-2021 17:30-0500 SaO2% (BldA) [Mass fraction] 98 % Khanh Jade MD Work Phone: [facility] 10-01-2021 17:30-0500 Systolic blood pressure 144 mm[Hg] Khanh Jade MD Work Phone: [facility] 07-08-2020 15:50-0500 BMI (Body Mass Index) 29.65 kg/m2 [facility] [place] 07-08-2020 15:50-0500 Body Temperature 97.81 [degF] [facility], [place] 07-08-2020 15:50-0500 Body weight 88.45 kg [facility] , [place] 07-08-2020 15:50-0500 BP Diastolic 93 mm[Hg] [facility] [place] 07-08-2020 15:50-0500 BP Systolic 167 mm[Hg] [facility] [place] 07-08-2020 15:50-0500 Height 172.7 cm [facility]legas [facility] [place] 07-08-2020 15:50-0500 Pulse (Heart Rate) 96 /min Antonio Villegas [facility], [place] 07-08-2020 15:50-0500 Pulse Oximetry 96 % [facility]legas [facility] [place] 07-08-2020 15:50-0500 Respiratory Rate 14 /min [facility] [place] Encounters Encounter Date Encounter Type Care Provider Facility Start: 08-16-2023 Refill Mario Tyson lla DO Work Phone: [facility] Start: 07-14-2023 Telephone encounter Mario Torres Junaid etrilla DO Work Phone: [facility] Medicine Procedures Date Procedure Procedure Detail Performing Clinician Start: 07-14-2023 Lipid 1996 panel - S rush or Plasma Mario Petrilla DO Work Phone: Start: 04-17-2023 Lipid 1996 panel - S rush or Plasma Mario Petrilla DO Work Phone: Start: 12-26-2021 Lipid 1996 panel - S rush or Plasma Sharif Dash DO Work Phone: Start: 05-09-2021 Radex wrist complete minimum 3 views Branden Jordan MD Work Phone: Start: 11-19-2020 Mri any jt upper ext remity w/o contrast matrl Shanita Padgett MD Work Phone: Start: 09-07-2020 Radiologic examinati on eye detect foreign body Shanita Padgett Work Phone: Start: 07-08-2020 Radex shoulder compl ete minimum 2 views Antonio Villegas Work Phone: Start: 07-08-2020 Radex wrist complete minimum 3 views Antonio Villegas Work Phone: Start: 12-05-2016 Colonoscopy Khanh alvarado MD Work Phone: Plan of Treatment Date Care Activity Detail Author Start: 12-05-2026 Screening for malign ant neoplasm of [facility] Start: 07-14-2024 Hemoglobin A1c measurement Diabetes: Hemoglobin A1C [facility] Start: 07-14-2024 Lipid panel Lipid Panel [facility] Start: 04-17-2024 Diabetic foot examination Diabetes: Foot Exam [facility] Start: 04-17-2024 Hemoglobin A1c measurement Diabetes: Hemoglobin A1C [facility] Start: 04-17-2024 Lipid panel Lipid Panel [facility] Start: 01-30-2024 Glaucoma screening Diabetes: R etinopathy Screening [facility] Start: 01-13-2024 End: 01-13-2024 Patient encounter procedure 01/13/2024 7:30 AM EDT Office Visit [facility] [address] [place] [address] Mario An DO [address] [place] [address] [facility] Start: 12-25-2023 Hemoglobin A1c measurement Diabetes: Hemoglobin A1C [facility] Start: 08-27-2023 Diabetic foot examination Diabetes: Foot Exam [facility] Start: 07-14-2023 End: 07-14-2024 Hemoglobin A1c measurement Hemoglobin A1c Lab Routine Type 2 diabetes mellitus without complication, without long-term current use of insulin ([facility]) ([facility]) Annual physical exam Expected: 07/14/2023 (Approximate), Expires: 07/14/2024 [facility] Work Phone: Immunizations Immunization Date Immunization Notes Care Provider Yojana vizcaino 07-14-2023 Influenza, Seasonal, Quadrivalent, Adjuvanted Mario An DO Work Phone: [facility] 07-14-2023 Pneumococcal Conjuga te PCV20, Pf (Prevnar 20) Mario An DO Work Phone: [facility] 07-20-2022 zoster vaccine recombinant Mario An DO Work Phone: [facility] 06-08-2022 Influenza, injectabl e, quadrivalent, preservative free Mario An DO Work Phone: [facility] 06-08-2022 influenza virus vaccine, unspecified formulation Sharif Dash DO Work Phone: [facility] 01-02-2022 zoster vaccine recombinant Mario An DO Work Phone: [facility] 08-13-2021 COVID-19, Moderna, Primary or Immunocompromised, PF, 100mcg/0.5mL Khanh Jade MD Work Phone: [facility] Work Phone: 07-31-2021 Influenza, Quadv Cristina th Beau, 3 Years And Older, IM, (Fluzone) Khanh Jade MD Work Phone: [facility] Work Phone: 12-02-2020 Moderna SARS-CoV-2 Vaccination Mario An DO Work Phone: [facility] 11-30-2020 COVID-19, Moderna, P F, 100mcg/0.5mL Branden Jordan MD [facility] Work Phone: 11-02-2020 COVID-19, Moderna, P F, 100mcg/0.5mL Branden Jordan MD Work Phone: [facility] Work Phone: Payers Date Payer Category Payer Private Health Insurance [employer] Ruthy RASHAWN PPO [id number] 2023-Present [id number] [place] [id number] Commercial [id number] 2023 Private Health Insurance [id number] 2022 Unknown 2020 Unknown [id number] 2015 Unknown [id number] 1963 Unknown [id number] 1963 Unknown [id number] 1965 Unknown [id number] Worker's Compensation Social History Date Type Detail Facility Start: 07-08-2020 End: 08-21-2022 Tobacco smoking status [facility] Former smoker [facility] End: 10-26-1999 History of tobacco use Current smoker [place], [place] End: 10-26-1999 History of tobacco use Cigarette Smoker [place], [place] Start: 07-08-2020 End: 08-13-2020 Tobacco use and exposure Never used [place], [place] Start: 07-08-2020 End: 07-14-2023 Alcohol intake Current non-drinker of alcohol (finding) [place], [place] Start: 1965 Sex Assigned At Male M [place], [place] Start: 04-07-2023 End: 04-17-2023 Exposure to SARS-CoV-2 (event) Not sure [place], [place] Start: 08-22-2020 End: 07-14-2023 Cigarettes smoked current (pack per day) - Reported [place], [place] History of tobacco use Snuff User [place] History of tobacco use Chews Tobacco [place], [place] Start: 08-26-2021 History SDOH Financial 5 [facility] Work Phone: Start: 08-26-2021 History SDOH Food Worry 1 [facility] Work Phone: Start: 08-21-2022 Tobacco use and exposure Forme r smokeless tobacco user [facility] Start: 12-24-2022 End: 07-14-2023 Tobacco use panel [facility] Start: 08-21-2022 Alcohol Comment 23 years sober [facility] Start: 05-22-2022 Gender identity Identifies as male gender (finding) [facility] Start: 05-22-2022 Sexual orientation Heterosexual (fin ding) [facility] Within the last year , have you been afraid of your partner or ex-partner? No [facility] How often to you hav e a drink containing alcohol? Never [facility] How many standard dr inks containing alcohol do you have on a typical day? Patient does not drink [facility] Do you feel stress - tense, restless, nervous, or anxious, or unable to sleep at night because your mind is troubled all the time - these days [OSQ] To some extent [facility] (I/We) worried wheth er (my/our) food would run out before (I/we) got money to buy more. Never true [facility] Medical Equipment Procedure Code Equipment Code Equipment Origin al Text Equipment Identifier Dates Test 3 times a d ay & as needed for symptoms of irregular blood glucose. Dispense sufficient amount for indicated testing frequency plus additional to accommodate PRN testing needs. E11.9 [id number] Start: 04-15-2021 End: 05-13-2021 1 each by Does n ot apply route 3 times daily E11.9 [id number] Start: 01-16-2021 Test 3 times a d ay & as needed for symptoms of irregular blood glucose. Dispense sufficient amount for indicated testing frequency plus additional to accommodate PRN testing needs. E11.9 [id number] Start: 08-20-2021 Test 3 times a d ay & as needed for symptoms of irregular blood glucose. Dispense sufficient amount for indicated testing frequency plus additional to accommodate PRN testing needs. E11.9 [id number] Start: 01-06-2022 End: 05-12-2022 TEST 3 TIMES CYRUS LY AND NEEDED FOR SYMPTOMS OF IRREGULAR BLOOD SUGAR. [id number] Start: 03-30-2023 TEST 3 TIMES CYRUS LY AND NEEDED FOR SYMPTOMS OF IRREGULAR BLOOD SUGAR. [id number] Start: 03-10-2022 End: 03-30-2023 Clinical Notes 08-21-2022 to 07-14-2023 Telephone Encounter - Jeannine Monae - 07/14/2023 3:37 PM ESTTelephone Encounter - Jeannine Monae - 07/14/2023 3:37 PM Daniel An DO - 07/14/2023 7:30 AM ESTPatient Instructions Note Date & Type Note Facility 07-14-2023 Note Referral pended for dx and doctor's signature [facility] 07-14-2023 Telephone encounter Note Referral pended for dx and doctor's signature [facility] 07-14-2023 Miscellaneous Notes Referral pended for dx and doctor's signature documented in this encounter [facility] 07-14-2023 History of Present illness Narrative Images from the original note were not included. [facility] [address] [place] [address] [address] [facility] [address] Visit type: Established Patient Reason for Visit: Follow-up (3 month med check) Assessment / Plan: Ke was seen today for follow-up. Diagnoses and all orders for this visit: Annual physical exam (Primary) - Hemoglobin A1c; Future - Lipid panel; Future - PSA Total (Screening); Future - Hemoglobin A1c - Lipid panel - PSA Total (Screening) Type 2 diabetes mellitus without complication, without long-term current use of insulin ([facility]) ([facility]) Comments: Stable, due to GI symptoms, stop metformin and increase Januvia to 100 mg daily. Call with log of glucose levels in 1 month Orders: - SITagliptin (Januvia) 100 MG tablet; Take 1 tablet (100 mg) by mouth daily for 90 doses. - Hemoglobin A1c; Future - Hemoglobin A1c Rheumatoid arthritis, involving unspecified site, unspecified whether rheumatoid factor present ([facility]) Comments: Stable, continue present rheumatologic meds Hypercholesterolemia Comments: Stable, continue atorvastatin Orders: - Lipid panel; Future - Lipid panel Family history of colonic polyps Psoriasis Encounter for monitoring NSAID therapy Comments: Stable, GI precautions discussed with meloxicam Colon cancer screening Prostate cancer screening - PSA Total (Screening); Future - PSA Total (Screening) Other orders - Flu vaccine quadrivalent, for patients ages 65+, (Fluad) preservative free - Pneumococcal conjugate vaccine 20-valent IM (PREVNAR 20) Subjective: Patient ID: Ke Sloan is a 58 y.o. male. HPI type II diabetic with lipid management and rheumatoid arthritis presents for annual exam. Past medical, past surgical, family and social history reviewed and chart updated appropriately. Presently feels well on his rheumatologic meds. Takes prednisone on a as needed basis and does notice increased blood sugars. Having some GI distress with bloating and diarrhea with metformin. Would like to know prescription options. A1c's have been improved over the last year. No change in vision or skin. No unhealing skin lesions. Psoriasis lesions have been well-controlled as well. Review of Systems does not smoke or drink. Still working full-time. Of note he is lost his wonderful this past spring due to COPD and alpha-1 antitrypsin deficiency. He denies recent earache sore throat or cough. Denies chest pain palpitations PND orthopnea claudication or edema. No heartburn or dysphagia. No abdominal pain. No bowel changes. He is overdue for colonoscopy. Needs prostate exam. Rare nocturia no postvoid dribbling hematuria dysuria. Nonhealing skin lesions. He does ask about possible Viagra use. No Known Allergies Current Outpatient Medications on File Prior to Visit Medication Sig Dispense Refill atorvastatin (Lipitor) 10 MG tablet Take 1 tablet (10 mg) by mouth daily. 90 tablet 1 betamethasone dipropionate 0.05 % cream Apply topically. ELDERBERRY PO Take 1 capsule by mouth daily. fluticasone (Flonase) 50 MCG/ACT nasal spray Administer 2 sprays into each nostril 2 times daily. Shake gently. Before first use, prime pump. After use, clean tip and replace cap. 16 g 0 loratadine (Claritin) 10 MG tablet Take 1 tablet (10 mg) by mouth daily. 30 tablet 2 meloxicam (Mobic) 7.5 MG tablet Take 7.5 mg by mouth daily. OneTouch Verio test strip TEST 3 TIMES DAILY AND NEEDED FOR SYMPTOMS OF IRREGULAR BLOOD SUGAR. 100 strip 3 predniSONE (Deltasone) 10 MG tablet Take 1 tablet by mouth as needed. 3-5 times daily as needed for flare ups sulfaSALAzine (Azulfidine) 500 MG EC tablet Take 500 mg by mouth 2 times daily. tofacitinib (Xeljanz) 10 MG tablet Take 11 mg by mouth daily. traMADol (Ultram) 50 MG tablet Take 50 mg by mouth 3 times daily as needed. [DISCONTINUED] metFORMIN (Glucophage) 500 MG tablet Take 2 tablets (1,000 mg) by mouth in the morning and 2 tablets (1,000 mg) in the evening. Take with meals. 360 tablet 1 [DISCONTINUED] SITagliptin (Januvia) 50 MG tablet Take 1 tablet (50 mg) by mouth daily. 90 tablet 1 No current facility-administered medications on file prior to visit. Patient Active Problem List Diagnosis Family history of colonic polyps RA (rheumatoid arthritis) (HCC) Psoriasis Type 2 diabetes mellitus without complication, without long-term current use of insulin (CMS/HCC) (HCC) Hypercholesterolemia H/O colonoscopy Social History Tobacco Use Smoking status: Former Packs/day: 1.50 Years: 20.00 Additional pack years: 0.00 Total pack years: 30.00 Types: Cigarettes Quit date: 10/26/1999 Years since quittin.7 Smokeless tobacco: Former Types: Snuff, Chew Substance Use Topics Alcohol use: No Comment: 23 years sober Past Surgical History: Procedure Laterality Date COLONOSCOPY 2016 Dr. Babin- due 2021 MENISCECTOMY Left 2014 George ROTATOR CUFF REPAIR Left 2007 SEPTOPLASTY 08/28/2022 [facility] BIOPSY LYMPH NODE (HISTORICAL) 2020 Right axilla VASECTOMY Family History Problem Relation Name Age of Onset Hyperlipidemia Mother COPD Mother age 78 Macular degeneration Father Kurt Diabetes Father Kurt 76 oral rx Lung cancer Father Kurt smoker No Known Problems Sister Beverly Pena Diabetes Brother Pee High Blood Pressure Brother Sharif Diabetes Brother Sharif neuropathy Accidental Brother Khoi 25 [facility] [place]: BP 120/60 Pulse 88 Temp 36.3 C (97.4 F) (Temporal) Ht 5' 8 (1.727 m) Wt 181 lb (82.1 kg) SpO2 96% BMI 27.52 kg/m Physical Exam The physical exam is generally normal. Patient appears well, alert and oriented x 3, pleasant, cooperative. Vitals are as noted. No carotid bruits. Neck supple, no abnormal adenopathy, thyroid lesions or masses. Ears, nose and throat are normal without acute findings. Lungs are clear to auscultation. Heart is regular, without murmurs, gallops or ectopy. Abdomen is soft, non tender, without masses, hepatosplenomegaly, or bruits. Normal BS evident. Extremities are normal without edema. Peripheral pulses are fair. No worrisome skin lesions. Screening neurological exam is normal without focal deficits. No skin changes. Pulses are excellent. Normal genitalia. Hernias. Rectal exam was unremarkable with normal sphincter tone, small prostate without nodules. No rectal masses. documented in this encounter [facility] 07-14-2023 Instructions Mario An DO - 07/14/2023 7:30 AM EST Call with log of glucose levels in one month documented in this encounter [facility] 04-17-2023 Evaluation + Plan note Associated Problem(s): RA (rheumatoid arthritis) ([facility]) - Chronic and stable continues to follow-up with rheumatology at baseline blood work done in January 2023 was normal. Mild chronic anemia with hemoglobin of 12.0. [facility] 04-17-2023 Miscellaneous Notes Associated Problem(s): RA (rheumatoid arthritis) ([facility]) - Chronic and stable continues to follow-up with rheumatology at baseline blood work done in January 2023 was normal. Mild chronic anemia with hemoglobin of 12.0. Associated Problem(s): Type 2 diabetes mellitus without complication, without long-term current use of insulin ([facility]) ([facility]) - Chronic and stable last hemoglobin A1c was 6.2 patient is requesting possible to minimize his medications either decreasing the metformin or switching over to Janumet. We will reassess after current A1c and make that decision. Associated Problem(s): Hypercholesterolemia - Chronic and stable we will continue on atorvastatin 10 mg daily. documented in this encounter [facility] 04-17-2023 Evaluation + Plan note Associated Problem(s): Type 2 diabetes mellitus without complication, without long-term current use of insulin ([facility]) ([facility]) - Chronic and stable last hemoglobin A1c was 6.2 patient is requesting possible to minimize his medications either decreasing the metformin or switching over to Janumet. We will reassess after current A1c and make that decision. [facility] 04-17-2023 Evaluation + Plan note Associated Problem(s): Hypercholesterolemia - Chronic and stable we will continue on atorvastatin 10 mg daily. [facility] 04-17-2023 History of Present illness Narrative Images from the original note were not included. [facility] [address] [place] [address] [address] [facility] [address] Dept: [phone] Dept Loc: [phone] Visit type: Established Patient Reason for Visit: Follow-up (4 month) and Earache (both) Assessment and Plan 1. Type 2 diabetes mellitus without complication, without long-term current use of insulin ([facility]) ([facility]) Assessment & Plan: - Chronic and stable last hemoglobin A1c was 6.2 patient is requesting possible to minimize his medications either decreasing the metformin or switching over to Janumet. We will reassess after current A1c and make that decision. Orders: - AMB POC URINE, MICROALBUMIN - Hemoglobin A1c - Diabetes Foot Exam - Lipid panel 2. Hypercholesterolemia Assessment & Plan: - Chronic and stable we will continue on atorvastatin 10 mg daily. Orders: - Lipid panel - atorvastatin (Lipitor) 10 MG tablet; Take 1 tablet (10 mg) by mouth daily., Starting Thu04/17/2023, Until Thu10/14/2023, Normal 3. Rheumatoid arthritis, involving unspecified site, unspecified whether rheumatoid factor present ([facility]) Assessment & Plan: - Chronic and stable continues to follow-up with rheumatology at baseline blood work done in January 2023 was normal. Mild chronic anemia with hemoglobin of 12.0. 4. Eustachian tube dysfunction, right Comments: Acute eustachian tube dysfunction primary on the right amenable to decongestants nasal sprays. Orders: - fluticasone (Flonase) 50 MCG/ACT nasal spray; Administer 2 sprays into each nostril 2 times daily. Shake gently. Before first use, prime pump. After use, clean tip and replace cap., Starting Thu04/17/2023, Until 04/16/2024, Normal - loratadine (Claritin) 10 MG tablet; Take 1 tablet (10 mg) by mouth daily., Starting Thu04/17/2023, Until [place] 07/16/2023, Normal Follow up in about 3 months (around 07/17/2023) for DM f/u. Subjective HPI Mr. Sloan is a 58-year-old male with an underlying history of type 2 diabetes, psoriasis and rheumatoid arthritis who presents to the office for routine checkup and evaluation. Hemoglobin A1c has been well controlled in the past. He is due for eye exam given his history of diabetes. Sees rheumatology and had routine blood work in January, Which was normal, chronic anemia hgb was 12 rest of cmp was normal. Patient does endorse some generalized arthralgias with his rheumatoid arthritis. Otherwise states he is doing well. He does report that he lost his due to complications secondary to COPD and alpha-1 antitrypsin disorder. So he still struggles with some depression from time to time but is not actively concerned about at this time. Most days he does fine he continues to work and stays active. 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 He does complain of arthritic pain in his feet but denies any numbness or tingling in his feet associate with his diabetes. He is scheduled soon to get his eye exam done. He complains today primarily of ear pain primarily in the right side with some congestion but otherwise no sore throat no dysphonia dysphagia to state the pain in the right ear occasionally radiates in the right side of his neck with no problems eating drinking or swallowing. Review of Systems Constitutional: Negative for chills and fever. HENT: Positive for congestion and ear pain. Negative for ear discharge, sinus pressure, sinus pain and sore throat. Respiratory: Negative for cough and shortness of breath. Cardiovascular: Negative for chest pain. Gastrointestinal: Negative for abdominal pain, diarrhea, nausea and vomiting. Genitourinary: Negative for difficulty urinating. Musculoskeletal: Positive for arthralgias (chronic). Negative for back pain and neck pain. Neurological: Negative for dizziness and light-headedness. All other systems reviewed and are negative. No Known Allergies Outpatient Medications Prior to Visit Medication Sig Dispense Refill metFORMIN (Glucophage) 500 MG tablet Take 2 tablets (1,000 mg) by mouth in the morning and 2 tablets (1,000 mg) in the evening. Take with meals. 360 tablet 1 SITagliptin (Januvia) 50 MG tablet Take 1 tablet (50 mg) by mouth daily. 90 tablet 1 sulfaSALAzine (Azulfidine) 500 MG EC tablet Take 500 mg by mouth 2 times daily. tofacitinib (Xeljanz) 10 MG tablet Take 11 mg by mouth daily. traMADol (Ultram) 50 MG tablet Take 50 mg by mouth 3 times daily as needed. atorvastatin (Lipitor) 10 MG tablet Take 1 tablet (10 mg) by mouth daily. 90 tablet 1 betamethasone dipropionate 0.05 % cream Apply topically. ELDERBERRY PO Take 1 capsule by mouth daily. OneTouch Verio test strip TEST 3 TIMES DAILY AND NEEDED FOR SYMPTOMS OF IRREGULAR BLOOD SUGAR. 100 strip 3 predniSONE (Deltasone) 10 MG tablet Take 1 tablet by mouth as needed. 3-5 times daily as needed for flare ups No facility-administered medications prior to visit. Past Medical History: Diagnosis Date Diabetes mellitus ([facility]) Eye exam, routine 01/29/2022 No diabetic retinopathy Family history of colonic polyps Fractures ankle, nose, left shoulder, 10 ribs HL (hearing loss) Hyperlipidemia Psoriasis 2012 Maureen Scanning Supervisor RA (rheumatoid arthritis) ([facility]) 2011 Rheumatoid arthritis ([facility]) Social History Tobacco Use Smoking status: Former Packs/day: 1.50 Years: 20.00 Pack years: 30.00 Types: Cigarettes Quit date: 10/26/1999 Years since quittin.4 Smokeless tobacco: Former Types: Snuff, Chew Substance Use Topics Alcohol use: No Comment: 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 MENISCECTOMY Left 01/31/2015 George ROTATOR CUFF REPAIR Left 08/03/2007 SEPTOPLASTY 08/28/2022 US BIOPSY LYMPH NODE (HISTORICAL) 12/26/2020 US LYMPH NODE BIOPSY VASECTOMY Family History Problem Relation Name Age of Onset Diabetes Brother Pee Hyperlipidemia Mother 75 High Blood Pressure Brother Sharif Other ([id number]) Father 75 macular degeneration COPD Mother 75 Diabetes Father 75 Diabetes Brother Sharfi neuropathy Objective BP 130/79 (BP Location: Left arm, Patient Position: Sitting, BP Cuff Size: Large adult) Pulse 80 Temp 36.8 C (98.2 F) (Temporal) Ht 5' 8 (1.727 m) Wt 184 lb 9.6 oz (83.7 kg) SpO2 97% BMI 28.07 kg/m Physical Exam Vitals reviewed. Constitutional: General: He is not in acute distress. Appearance: Normal appearance. He is not toxic-appearing. HENT: Right Ear: Ear canal normal. Left Ear: Ear canal normal. Ears: Comments: Fluid behind both ears. Eyes: General: No scleral icterus. Conjunctiva/sclera: Conjunctivae normal. Pupils: Pupils are equal, round, and reactive to light. Cardiovascular: Rate and Rhythm: Normal rate and regular rhythm. Heart sounds: Normal heart sounds. Pulmonary: Effort: Pulmonary effort is normal. No respiratory distress. Breath sounds: Normal breath sounds. No wheezing or rales. Musculoskeletal: Cervical back: Normal range of motion and neck supple. Skin: General: Skin is warm and dry. Neurological: Mental Status: He is alert. Psychiatric: Mood and Affect: Mood normal. Examination of bilateral feet appears unremarkable. Skin is intact warm and dry good dorsalis pedis and posterior tibial pulses. Skin between the toes is checked there is no signs of ulceration skin breakdown or lesions. Plantar surface is intact again no signs of ulcerations lesions skin breakdown or signs of foreign bodies or other acute abnormalities. Skin itself is warm and dry. Good sensation and 8 points of contact on the plantar surface of the feet. Good full range of motion. Johnson's test was negative. Data Reviewed and Summarized Labs: Imaging/Testing: Tal Cabrera PA-C 04/17/2023 Please note that portions of this note may have been completed with voice recognition software. Documentation reviewed prior to signing but minor errors in director family may have occurred. documented in this encounter [facility] 03-30-2023 Telephone encounter Note Rx loaded [facility] 03-30-2023 Miscellaneous Notes Rx loaded documented in this encounter [facility] 08-28-2022 Note Patient: Ke jones Procedure Summary Date: 08/28/22 Room / Location: [address] Operating Room Anesthesia Start: 1126 Anesthesia Stop: 1335 Procedures: SEPTOPLASTY, BILATERAL INFERIOR TURBINATE REDUCTION, BILATERAL MAXILLARY ANTROSTOMY, BILATERAL ANTERIOR ETHMOIDECTOMY, BILATERAL FRONTAL SINUSOTOMY, STEROTACTIC COMPUTER ASSISTED NAVIGATIONAL PROCEDURE (Nose) SUBMUCOUS RESECTION INFERIOR TURBINATE (Bilateral: Nose) NASAL SINUS ENDOSCOPY WITH MAXILLARY ANTROSTOMY (Bilateral: Nose) NASAL SINUS ENDOSCOPY WITH ETHMOIDECTOMY PARTIAL ANTERIOR (Bilateral: Nose) NASAL SINUS ENDOSCOPY WITH FRONTAL SINUS EXPLORATION (Bilateral: Nose) STEREOTACTIC CRANIOTOMY CRANIAL EXTRADURAL (Bilateral: Head) Diagnosis: Deviated nasal septum Chronic maxillary sinusitis Hypertrophy of nasal turbinates Chronic ethmoidal sinusitis Chronic frontal sinusitis (Deviated nasal septum [J34.2]) (Chronic maxillary sinusitis [J32.0]) (Hypertrophy of nasal turbinates [J34.3]) (Chronic ethmoidal sinusitis [J32.2]) (Chronic frontal sinusitis [J32.1]) Surgeons: Shanita Courtney DO Responsible Provider: Cale Mcmillan Jr., MD Anesthesia Type: general anesthesia ASA Status: 2 Anesthesia Type: general anesthesia Vitals Value Taken Time BP 148/83 08/28/22 1431 Temp 36.7 ?C (98.1 ?F) 08/28/22 1410 Pulse 95 08/28/22 1434 Resp 15 08/28/22 1434 SpO2 95 % 08/28/22 1434 Vitals shown include unvalidated device data. Anesthesia Post Evaluation Patient location during evaluation: PACU Patient participation: complete - patient participated Level of consciousness: awake and alert Pain management: satisfactory to patient Airway patency: patent Dental Injury: no Cardiovascular status: acceptable, blood pressure returned to baseline and hemodynamically stable Respiratory status: acceptable and spontaneous ventilation Hydration status: euvolemic Nausea/Vomiting: controlled No notable events documented. Patient can be discharged once all PACU criteria has been met. [facility] 08-28-2022 Note Patient: Ke jones Procedure Summary Date: 08/28/22 Room / Location: [address] Operating Room Anesthesia Start: 1126 Anesthesia Stop: 1335 Procedures: SEPTOPLASTY, BILATERAL INFERIOR TURBINATE REDUCTION, BILATERAL MAXILLARY ANTROSTOMY, BILATERAL ANTERIOR ETHMOIDECTOMY, BILATERAL FRONTAL SINUSOTOMY, STEROTACTIC COMPUTER ASSISTED NAVIGATIONAL PROCEDURE (Nose) SUBMUCOUS RESECTION INFERIOR TURBINATE (Bilateral: Nose) NASAL SINUS ENDOSCOPY WITH MAXILLARY ANTROSTOMY (Bilateral: Nose) NASAL SINUS ENDOSCOPY WITH ETHMOIDECTOMY PARTIAL ANTERIOR (Bilateral: Nose) NASAL SINUS ENDOSCOPY WITH FRONTAL SINUS EXPLORATION (Bilateral: Nose) STEREOTACTIC CRANIOTOMY CRANIAL EXTRADURAL (Bilateral: Head) Diagnosis: Deviated nasal septum Chronic maxillary sinusitis Hypertrophy of nasal turbinates Chronic ethmoidal sinusitis Chronic frontal sinusitis (Deviated nasal septum [J34.2]) (Chronic maxillary sinusitis [J32.0]) (Hypertrophy of nasal turbinates [J34.3]) (Chronic ethmoidal sinusitis [J32.2]) (Chronic frontal sinusitis [J32.1]) Surgeons: Shanita Courtney DO Responsible Provider: Cale Mcmillan Jr., MD Anesthesia Type: general anesthesia ASA Status: 2 Anesthesia Type: general anesthesia Vitals Value Taken Time BP 157/76 08/28/22 1339 Temp 97.9 08/28/22 1339 Pulse 89 08/28/22 1339 Resp 14 08/28/22 1339 SpO2 98 % 08/28/22 1339 Vitals shown include unvalidated device data. Anesthesia Post Evaluation Patient location during evaluation: PACU Patient participation: complete - patient participated Level of consciousness: awake and alert Pain score: 0 Pain management: satisfactory to patient Multimodal analgesia pain management approach Airway patency: patent Two or more strategies used to mitigate risk of obstructive sleep apnea Cardiovascular status: acceptable and hemodynamically stable Respiratory status: acceptable Hydration status: acceptable No notable events documented. MIPS #[id number] PONV Patient received an inhalational anesthetic (4554F) Patient exhibits three or more risk factors for PONV (4556F) Patient received at aset 2 prophylactic Rx PONV anti-emtic agents of different classes preop and/or intraop (G9775) MIPS # [phone] Perioperative Temperature Management Anesthesia time was 60 minutes or longer (4255F) Anesthesai administered was General (inhalational or TIVA) or Neuraxial block (X0424) At least one body temperature greater than 95.8F/35.5C achieved within the 30 mins immediately prior to or the 15 minutes immediately following anesthesia end time (G9771) MIPS #477 Multimodal Pain Management Not emergent case Patient was administered multimodal pain management (two or more drugs and/or interventions excluding systemic opioids) in the periopeartive period occurring at some time between 6 hours prior to anesthesia start time until discharged from PACU (G2148) MIPS #404 Anesthesiology Smoking Abstinence The patient is not a current smoker (e.g. cigarette, cigar, pipe, e-cigarette/vaping/marijuana) I completed my handoff to the receiving clinician during which we: 1. Identified the patient 2. Identified the responsible provider 3. Reviewed the pertinent medical history 4. Discussed the surgical course 5. Reviewed intra-op anesthesia management and issues during anesthesia 6. Set expectations for post-procedure period 7. Allowed opportunity for questions and acknowledgement of understanding. [facility] 08-28-2022 Note Airway Date/Time: 08/28/2022 11:37 AM Urgency: scheduled Airway not difficult General Information and Staff Patient location during procedure: Procedural Anesthesiologist: Cale Mcmillan Jr., MD Resident/RADIOLOGY SPECIAL PROCEDURE TECH: Krysten Askew APRN - RADIOLOGY SPECIAL PROCEDURE TECH Performed: RADIOLOGY SPECIAL PROCEDURE TECH Indications and Patient Condition Indications for airway management: anesthesia Sedation level: Asleep Patient position: sniffing Mask difficulty assessment: 1 - vent by mask Final Airway Details Final airway type: endotracheal airway Successful airway: ETT Cuffed: yes Successful intubation technique: direct laryngoscopy Facilitating devices/methods: intubating stylet Endotracheal tube insertion site: oral Blade: Lilo Blade size: #3 ETT size (mm): 7.0 Cormack-Lehane Classification: grade IIa - partial view of glottis Placement verified by: chest auscultation and capnometry Measured from: lips ETT to lips (cm): 21 Number of attempts at approach: 1 Number of other approaches attempted: 0 [facility] 08-28-2022 Note [facility] PreSurgical History and Physical Name: Ke Sloan : 1965 (Age-57 y.o.) Date of evaluation: 08/28/2022 Surgeon: Shanita Courtney DO No Known Allergies Height: 172.7 cm (5' 8 ) Weight: 82.1 kg (181 lb) BMI (Calculated): 27.53 Chief Complaint: 57 y.o. male for Procedure(s): SEPTOPLASTY, BILATERAL INFERIOR TURBINATE REDUCTION, BILATERAL MAXILLARY ANTROSTOMY, BILATERAL ANTERIOR ETHMOIDECTOMY, BILATERAL FRONTAL SINUSOTOMY, STEROTACTIC COMPUTER ASSISTED NAVIGATIONAL PROCEDURE SUBMUCOUS RESECTION INFERIOR TURBINATE NASAL SINUS ENDOSCOPY WITH MAXILLARY ANTROSTOMY NASAL SINUS ENDOSCOPY WITH ETHMOIDECTOMY PARTIAL ANTERIOR NASAL SINUS ENDOSCOPY WITH FRONTAL SINUS EXPLORATION STEREOTACTIC CRANIOTOMY CRANIAL EXTRADURAL . HPI: Deviated nasal septum [J34.2] Chronic maxillary sinusitis [J32.0] Hypertrophy of nasal turbinates [J34.3] Chronic ethmoidal sinusitis [J32.2] Chronic frontal sinusitis [J32.1] Severity: Moderate Duration: >one month Review of systems negative except for items below: Past Medical History: Diagnosis Date Diabetes mellitus ([facility]) Eye exam, routine 01/29/2022 No diabetic retinopathy Family history of colonic polyps Fractures ankle, nose, left shoulder, 10 ribs HL (hearing loss) Hyperlipidemia Psoriasis 2011 Maureen, Scanning Supervisor RA (rheumatoid arthritis) ([facility]) 2011 Rheumatoid arthritis ([facility]) Patient Active Problem List Diagnosis Date Noted Family history of colonic polyps 07/20/2020 Right wrist sprain, initial encounter 07/08/2020 Right shoulder strain, initial encounter 07/08/2020 RA (rheumatoid arthritis) ([facility]) 10/26/2015 Psoriasis 10/26/2015 Past Surgical History: Procedure Laterality Date COLONOSCOPY 2017 repeat colonoscpy 2022. MENISCECTOMY Left 01/31/2015 George ROTATOR CUFF REPAIR Left 08/03/2007 US BIOPSY LYMPH NODE (HISTORICAL) 12/26/2020 US LYMPH NODE BIOPSY VASECTOMY Family History Problem Relation Name Age of Onset Diabetes Brother Pee Hyperlipidemia Mother 75 High Blood Pressure Brother Sharif Other ([id number]) Father 75 macular degeneration COPD Mother 75 Diabetes Father 75 Diabetes Brother Sharif neuropathy Medications: Prior to Admission medications Medication Sig Start Date End Date Taking? Authorizing Provider metFORMIN (Glucophage) 500 MG tablet Take 2 tablets (1,000 mg) by mouth in the morning and 2 tablets (1,000 mg) in the evening. Take with meals. 08/25/22 Yes Sharif Dash DO SITagliptin (Januvia) 50 MG tablet Take 1 tablet by mouth daily. 01/22/22 Yes Historical Provider, tofacitinib (Xeljanz) 10 MG tablet Take 11 mg by mouth daily. Yes Historical Provider, traMADol (Ultram) 50 MG tablet Take 50 mg by mouth 3 times daily as needed. 07/21/22 Yes Historical Provider, atorvastatin (Lipitor) 10 MG tablet Take 1 tablet (10 mg) by mouth daily. Patient not taking: Reported on 08/28/2022 08/27/22 11/25/22 Sharif Dash DO betamethasone dipropionate 0.05 % cream Apply topically. Historical Provider, MD GREGORIO PO Take 1 capsule by mouth daily. Historical Provider, OneTouch Verio test strip TEST 3 TIMES DAILY AND NEEDED FOR SYMPTOMS OF IRREGULAR BLOOD SUGAR. 03/10/22 Historical Provider, predniSONE (Deltasone) 10 MG tablet Take 1 tablet by mouth as needed. 3-5 times daily as needed for flare ups 04/25/22 Historical Provider, metFORMIN (Glucophage) 500 MG tablet Take 2 tablets by mouth in the morning and 2 tablets in the evening. 04/28/22 08/25/22 Historical Provider, Social history and Laboratory Data: Lab Results Component Value Date HGB 13.1 08/21/2022 HCT 38.4 (L) 08/21/2022 PLT 246 08/21/2022 WBC 4.4 08/21/2022 NA 139 08/21/2022 K 4.2 08/21/2022 BUN 15 08/21/2022 CREATININE 0.95 08/21/2022 CREATININE 0.85 12/26/2021 GLUCOSE 94 08/21/2022 Social History Tobacco Use Smoking Status Former Packs/day: 1.50 Years: 20.00 Pack years: 30.00 Types: Cigarettes Quit date: 10/26/1999 Years since quittin.8 Smokeless Tobacco Former Types: Snuff, Chew Social History Substance and Sexual Activity Alcohol Use No Comment: 23 years sober Social History Substance and Sexual Activity Drug Use Never Physical Examination: Constitutional: No apparent distress, well nourished, and in stable condition. Cardiac: Regular rate and rhythm Abdomen: Soft and nonacute Pulmonary: Clear bilaterally and no wheezing Neuro: Moves extremities X4 with no tremors HEENT: No gross cranial nerve defects and anicteric sclera Skin: Skin warm and dry with no visible rashes Vascular: Adequate perfusion of extremities with no cyanosis Psych: Alert and oriented x3 with appropriate affect Lymphatics: No swelling of arms/hands with no pedal edema Neck: FROM with no JVD Additional Notes:None After review of the medical history and physical assessment, medications, allergies, ivon (more content not included)... [facility] 08-28-2022 Note H&P reviewed. The pa tient was examined and there are no changes to the H&P. [facility] 08-21-2022 Note Patient: Ke jones Procedure Information Date/Time: 08/28/22 1100 Procedures: SEPTOPLASTY, BILATERAL INFERIOR TURBINATE REDUCTION, BILATERAL MAXILLARY ANTROSTOMY, BILATERAL ANTERIOR ETHMOIDECTOMY, BILATERAL FRONTAL SINUSOTOMY, STEROTACTIC COMPUTER ASSISTED NAVIGATIONAL PROCEDURE (Nose) SUBMUCOUS RESECTION INFERIOR TURBINATE (Bilateral: Nose) NASAL SINUS ENDOSCOPY WITH MAXILLARY ANTROSTOMY (Bilateral: Nose) NASAL SINUS ENDOSCOPY WITH ETHMOIDECTOMY PARTIAL ANTERIOR (Bilateral: Nose) NASAL SINUS ENDOSCOPY WITH FRONTAL SINUS EXPLORATION (Bilateral: Nose) STEREOTACTIC CRANIOTOMY CRANIAL EXTRADURAL (Bilateral: Head) Location: [address] Operating Room Surgeons: Shanita Courtney, Relevant Problems Other (+) RA (rheumatoid arthritis) ([facility]) Past Medical History: Past Medical History: No date: Diabetes mellitus ([facility]) 01/29/2022: Eye exam, routine Comment: No diabetic retinopathy No date: Family history of colonic polyps No date: Fractures Comment: ankle, nose, left shoulder, 10 ribs No date: HL (hearing loss) No date: Hyperlipidemia 2012: Psoriasis Comment: Maureen Scanning Supervisor 2012: RA (rheumatoid arthritis) (HCC) No date: Rheumatoid arthritis (HCC) Past Surgical History: Past Surgical History: 2017: COLONOSCOPY Comment: repeat colonoscpy 2022. 01/31/2015: MENISCECTOMY; Left Comment: George 08/03/2007: ROTATOR CUFF REPAIR; Left 12/26/2020: US BIOPSY LYMPH NODE (HISTORICAL) Comment: US LYMPH NODE BIOPSY No date: VASECTOMY Social History: TOBACCO: reports that he quit smoking about 22 years ago. His smoking use included cigarettes. He has a 30.00 pack-year smoking history. He has quit using smokeless tobacco. His smokeless tobacco use included snuff and chew. ETOH: reports no history of alcohol use. Social History Substance and Sexual Activity Drug Use Never Family History: Family History Problem Relation Name Age of Onset ? Diabetes Brother Pee ? Hyperlipidemia Mother 75 ? High Blood Pressure Brother Sharif ? Other ([id number]) Father 75 macular degeneration ? COPD Mother 75 ? Diabetes Father 75 ? Diabetes Brother Sharif neuropathy Screening: unknown Clinical information reviewed: Tobacco Allergies Meds Med Hx Surg Hx Fam Hx Soc Hx Physical Exam Airway Mallampati: I Neck ROM: full Mouth Open: normal Cardiovascular Dental Comments: FULL DENTURES TOP AND BOTTOM Pulmonary Abdominal Anesthesia Plan ASA 2 general anesthesia The patient is not a current smoker. Anesthetic plan and risks discussed with patient. patient is NPO DARLYN Screening Labs: Lab Results Component Value Date WBC 4.4 08/21/2022 HGB 13.1 08/21/2022 HCT 38.4 (L) 08/21/2022 MCV 86.1 08/21/2022 PLT 246 08/21/2022 Lab Results Component Value Date NA 139 12/26/2021 K 4.4 12/26/2021 CL 103 12/26/2021 CO2 27 12/26/2021 BUN 13 12/26/2021 CREATININE 0.85 12/26/2021 GLUCOSE 141 (H) 04/28/2022 CALCIUM 9.6 12/26/2021 PROT 7.5 12/26/2021 ALKPHOS 107 12/26/2021 AST 27 12/26/2021 Pain Score: 4 No echocardiogram results found for the past 14 days 08/21/22 ECG 12-LEAD (Preliminary) This result has not been signed. Information might be incomplete. Impression SINUS RHYTHM BORDERLINE LEFT AXIS DEVIATION BASELINE WANDER IN LEAD(S) I,aVL,V6 No previous ECG available for comparison [facility] 08-21-2022 Note Comprehensive PreSur gical History and Physical ? Name: Ke Sloan : 1965 (Age-57 y.o.) Date of Service: Pt seen/examined on 08/21/2022 Procedure Information Date/Time: 08/28/22 1100 Procedures: SEPTOPLASTY, BILATERAL INFERIOR TURBINATE REDUCTION, BILATERAL MAXILLARY ANTROSTOMY, BILATERAL ANTERIOR ETHMOIDECTOMY, BILATERAL FRONTAL SINUSOTOMY, STEROTACTIC COMPUTER ASSISTED NAVIGATIONAL PROCEDURE (Nose) SUBMUCOUS RESECTION INFERIOR TURBINATE (Bilateral: Nose) NASAL SINUS ENDOSCOPY WITH MAXILLARY ANTROSTOMY (Bilateral: Nose) NASAL SINUS ENDOSCOPY WITH ETHMOIDECTOMY PARTIAL ANTERIOR (Bilateral: Nose) NASAL SINUS ENDOSCOPY WITH FRONTAL SINUS EXPLORATION (Bilateral: Nose) STEREOTACTIC CRANIOTOMY CRANIAL EXTRADURAL (Bilateral: Head) Location: [address] Operating Room Surgeons: Shanita Courtney DO Chief Complaint: SINUS HEADACHES AND NASAL DRAINAGE History Of Present Illness: 57 y.o. male who c/o SINUS HEADACHES AND NASAL DRAINAGE Pt has seen the surgeon and elected for above procedure. Missing teeth? - FULL DENTURES TOP AND BOTTOM Hx problems with anesthesia? - NONE Snore at night? - DENIES Climb a flight of stairs? -YES AND PATIENT STATES THAT HE HAS APPOINTMENT WITH HIS PCP ON COMING Thursday (08/25/22 Past Medical History: Past Medical History: No date: Diabetes mellitus (HCC) 01/29/2022: Eye exam, routine Comment: No diabetic retinopathy No date: Family history of colonic polyps No date: Fractures Comment: ankle, nose, left shoulder, 10 ribs No date: HL (hearing loss) No date: Hyperlipidemia 2012: Psoriasis Comment: Maureen Scanning Supervisor 2012: RA (rheumatoid arthritis) ([facility]) No date: Rheumatoid arthritis ([facility]) Past Surgical History: Past Surgical History: 2017: COLONOSCOPY Comment: repeat colonoscpy 2022. 01/31/2015: MENISCECTOMY; Left Comment: George 08/03/2007: ROTATOR CUFF REPAIR; Left 12/26/2020: US BIOPSY LYMPH NODE (HISTORICAL) Comment: US LYMPH NODE BIOPSY No date: VASECTOMY Current Outpatient Medications: SITagliptin (Januvia) 50 MG tablet, Take 1 tablet by mouth daily., Disp: , Rfl: metFORMIN (Glucophage) 500 MG tablet, Take 2 tablets by mouth in the morning and 2 tablets in the evening., Disp: , Rfl: predniSONE (Deltasone) 10 MG tablet, Take 1 tablet by mouth as needed. 3-5 times daily as needed for flare ups, Disp: , Rfl: tofacitinib (Xeljanz) 10 MG tablet, Take 11 mg by mouth daily., Disp: , Rfl: traMADol (Ultram) 50 MG tablet, Take 50 mg by mouth 3 times daily as needed., Disp: , Rfl: CHRONIC NARCOTIC USE: No Allergies: Patient has no known allergies. If patient has opioid allergy, is it okay to take Acetaminophen: Yes Social History: TOBACCO: reports that he quit smoking about 22 years ago. His smoking use included cigarettes. He has a 30.00 pack-year smoking history. He has quit using smokeless tobacco. His smokeless tobacco use included snuff and chew. ETOH: reports no history of alcohol use. Social History Substance and Sexual Activity Drug Use Never Family History: Family History Problem Relation Name Age of Onset Diabetes Brother Pee Hyperlipidemia Mother 75 High Blood Pressure Brother Sharif Other ([id number]) Father 75 macular degeneration COPD Mother 75 Diabetes Father 75 Diabetes Brother Sharif neuropathy REVIEW OF SYSTEMS: Review of Systems Constitutional: Negative for fever. Respiratory: Negative for shortness of breath. Cardiovascular: Negative for chest pain. Gastrointestinal: Negative for nausea. Skin: Negative for pallor and rash. Pertinent positives as noted in the HPI. Physical Exam: Physical Exam Vitals and nursing note reviewed. Constitutional: Appearance: Normal appearance. HENT: Head: Normocephalic and atraumatic. Mouth/Throat: Mouth: Mucous membranes are moist. Cardiovascular: Rate and Rhythm: Normal rate and regular rhythm. Pulmonary: Effort: Pulmonary effort is normal. Breath sounds: Normal breath sounds. Musculoskeletal: General: Normal range of motion. Cervical back: Normal range of motion and neck supple. Skin: General: Skin is warm. Neurological: General: No focal deficit present. Mental Status: He is alert and oriented to person, place, and time. Psychiatric: Mood and Affect: Mood normal. Behavior: Behavior normal. Vitals: Vitals Value Taken Time BP 142/77 08/21/22 1415 Temp 36.2 ?C (97.1 ?F) 08/21/22 1415 Pulse 79 08/21/22 1415 Resp 16 08/21/22 1415 SpO2 98 % 08/21/22 1415 BP (!) 142/77 Pulse 79 Temp 36.2 ?C (97.1 ?F) (Temporal) Resp 16 Ht 1.727 m (5' 8 ) Wt 83.7 kg (184 lb 9.6 oz) SpO2 98% BMI 28.07 kg/m? Labs: Lab Results Component Value Date WBC 4.4 08/21/2022 HGB 13.1 08/21/2022 HCT 38.4 (L) 08/21/2022 MCV 86.1 08/21/2022 PLT 246 08/21/2022 Lab Results Component Value Date NA 139 12/26/2021 K 4.4 12/26/2021 CL 103 12/26/2021 CO2 27 12/27/19 (more content not included)... [facility] 08-21-2022 Note Comprehensive PreSur gical History and Physical ? Name: Ke Sloan : 1965 (Age-57 y.o.) Date of Service: Pt seen/examined on 08/21/2022 Procedure Information Date/Time: 08/28/22 1100 Procedures: SEPTOPLASTY, BILATERAL INFERIOR TURBINATE REDUCTION, BILATERAL MAXILLARY ANTROSTOMY, BILATERAL ANTERIOR ETHMOIDECTOMY, BILATERAL FRONTAL SINUSOTOMY, STEROTACTIC COMPUTER ASSISTED NAVIGATIONAL PROCEDURE (Nose) SUBMUCOUS RESECTION INFERIOR TURBINATE (Bilateral: Nose) NASAL SINUS ENDOSCOPY WITH MAXILLARY ANTROSTOMY (Bilateral: Nose) NASAL SINUS ENDOSCOPY WITH ETHMOIDECTOMY PARTIAL ANTERIOR (Bilateral: Nose) NASAL SINUS ENDOSCOPY WITH FRONTAL SINUS EXPLORATION (Bilateral: Nose) STEREOTACTIC CRANIOTOMY CRANIAL EXTRADURAL (Bilateral: Head) Location: [address] Operating Room Surgeons: Shanita Courtney DO Chief Complaint: SINUS HEADACHES AND NASAL DRAINAGE History Of Present Illness: 57 y.o. male who c/o SINUS HEADACHES AND NASAL DRAINAGE Pt has seen the surgeon and elected for above procedure. Missing teeth? - FULL DENTURES TOP AND BOTTOM Hx problems with anesthesia? - NONE Snore at night? - DENIES Climb a flight of stairs? -YES AND PATIENT STATES THAT HE HAS APPOINTMENT WITH HIS PCP ON COMING Thursday (08/25/22 Past Medical History: Past Medical History: No date: Diabetes mellitus (HCC) 01/29/2022: Eye exam, routine Comment: No diabetic retinopathy No date: Family history of colonic polyps No date: Fractures Comment: ankle, nose, left shoulder, 10 ribs No date: HL (hearing loss) No date: Hyperlipidemia 2012: Psoriasis Comment: Maureen Scanning Supervisor 2012: RA (rheumatoid arthritis) (HCC) No date: Rheumatoid arthritis (HCC) Past Surgical History: Past Surgical History: 2017: COLONOSCOPY Comment: repeat colonoscpy 2022. 01/31/2015: MENISCECTOMY; Left Comment: George 08/03/2007: ROTATOR CUFF REPAIR; Left 12/26/2020: US BIOPSY LYMPH NODE (HISTORICAL) Comment: US LYMPH NODE BIOPSY No date: VASECTOMY Current Outpatient Medications: SITagliptin (Januvia) 50 MG tablet, Take 1 tablet by mouth daily., Disp: , Rfl: metFORMIN (Glucophage) 500 MG tablet, Take 2 tablets by mouth in the morning and 2 tablets in the evening., Disp: , Rfl: predniSONE (Deltasone) 10 MG tablet, Take 1 tablet by mouth as needed. 3-5 times daily as needed for flare ups, Disp: , Rfl: tofacitinib (Xeljanz) 10 MG tablet, Take 11 mg by mouth daily., Disp: , Rfl: traMADol (Ultram) 50 MG tablet, Take 50 mg by mouth 3 times daily as needed., Disp: , Rfl: CHRONIC NARCOTIC USE: No Allergies: Patient has no known allergies. If patient has opioid allergy, is it okay to take Acetaminophen: Yes Social History: TOBACCO: reports that he quit smoking about 22 years ago. His smoking use included cigarettes. He has a 30.00 pack-year smoking history. He has quit using smokeless tobacco. His smokeless tobacco use included snuff and chew. ETOH: reports no history of alcohol use. Social History Substance and Sexual Activity Drug Use Never Family History: Family History Problem Relation Name Age of Onset Diabetes Brother Pee Hyperlipidemia Mother 75 High Blood Pressure Brother Sharif Other ([id number]) Father 75 macular degeneration COPD Mother 75 Diabetes Father 75 Diabetes Brother Sharif neuropathy REVIEW OF SYSTEMS: Review of Systems Constitutional: Negative for fever. Respiratory: Negative for shortness of breath. Cardiovascular: Negative for chest pain. Gastrointestinal: Negative for nausea. Skin: Negative for pallor and rash. Pertinent positives as noted in the HPI. Physical Exam: Physical Exam Vitals and nursing note reviewed. Constitutional: Appearance: Normal appearance. HENT: Head: Normocephalic and atraumatic. Mouth/Throat: Mouth: Mucous membranes are moist. Cardiovascular: Rate and Rhythm: Normal rate and regular rhythm. Pulmonary: Effort: Pulmonary effort is normal. Breath sounds: Normal breath sounds. Musculoskeletal: General: Normal range of motion. Cervical back: Normal range of motion and neck supple. Skin: General: Skin is warm. Neurological: General: No focal deficit present. Mental Status: He is alert and oriented to person, place, and time. Psychiatric: Mood and Affect: Mood normal. Behavior: Behavior normal. Vitals: Vitals Value Taken Time BP 142/77 08/21/22 1415 Temp 36.2 ?C (97.1 ?F) 08/21/22 1415 Pulse 79 08/21/22 1415 Resp 16 08/21/22 1415 SpO2 98 % 08/21/22 1415 BP (!) 142/77 Pulse 79 Temp 36.2 ?C (97.1 ?F) (Temporal) Resp 16 Ht 1.727 m (5' 8 ) Wt 83.7 kg (184 lb 9.6 oz) SpO2 98% BMI 28.07 kg/m? Labs: Lab Results Component Value Date WBC 4.4 08/21/2022 HGB 13.1 08/21/2022 HCT 38.4 (L) 08/21/2022 MCV 86.1 08/21/2022 PLT 246 08/21/2022 Lab Results Component Value Date NA 139 12/26/2021 K 4.4 12/26/2021 CL 103 12/26/2021 CO2 27 12/27/19 (more content not included)... [facility] this [facility]: Evaluation note* Diagnosis Acute infection of left ear- Primary documented in this encounter [facility] Work Phone: Evaluation note* Diagnosis Type 2 diabetes mellitus without complication, without long-term current use of insulin ([facility]) ([facility])- Primary Hypercholesterolemia Pure hypercholesterolemia Rheumatoid arthritis, involving unspecified site, unspecified whether rheumatoid factor present ([facility]) Eustachian tube dysfunction, right [facility] Diagnosis Annual physical exam- Primary Routine general medical examination at a health care facility Type 2 diabetes mellitus without complication, without long-term current use of insulin (CMS/HCC) (HCC) Rheumatoid arthritis, involving unspecified site, unspecified whether rheumatoid factor present (HCC) Hypercholesterolemia Pure hypercholesterolemia Family history of colonic polyps Psoriasis Other psoriasis Encounter for monitoring NSAID therapy Colon cancer screening Special screening for malignant neoplasms, colon Prostate cancer screening Special screening for malignant neoplasm of prostate [facility] Diagnosis Family history of colonic polyps- Primary Colon cancer screening Special screening for malignant neoplasms, colon documented in this encounter [facility] Discharge instructions* Attachments The following attachments cannot be sent through Care Everywhere. * Otitis Media ([place]) [facility]: Reason for referral (narrative)* Consultation (Routine) - Pending Review Specialty Diagnoses / Procedures Referred By Ramandeep boyle Referred To Contact Gastroenterology Diagnoses Family history of colonic polyps Colon cancer screening Procedures UT OFFICE/OUTPATIENT NEW HIGH MDM 60-74 MINUTES Mario An DO [address] [place] [address] Fernando Babin [address] [facility] [place] [address] Referral ID Status Reason Start Date Expiration Date Visits Requested Visits Authorized [id number] Pending Review Specialty Services Required 3 07/13/2024 1 1 [facility] Discharge Instructions * Instructions* Antonio Villegas MD - 07/08/2020 Place ice to the painful areas. Can also use Tylenol. Follow-up with your doctor since she have an appointment this week as you may need physical therapy. * Attachments The following attachments cannot be sent through Care Everywhere. 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 ACP-Advance Directive ACP-Power of Mothers Helper Reason for Referral Status Reason Specialty Diagnoses / Procedures Referred By Contact Referred To Contact Pending Review Radiology Diagnoses Strain of right wrist, initial encounter Procedures MRI Upper Extremity Right W JT WO Contrast Shanita Padgett MD [address] [place] [address] Status Reason Specialty Diagnoses / Procedures Referred By Contact Referred To Contact Pending Review Radiology Diagnoses Strain of right shoulder, initial encounter Bursitis of right shoulder Procedures MRI Upper Extremity Right W JT WO Contrast Shanita Padgett MD [address] [place] [address] Summary Purpose Family History No Family History Records FoundNo Family History Records FoundNo Family History Records Found Additional Source Comments Reason for Visit (unrecogniz ed section and content) Status Reason Specialty Diagnoses / Procedures Referred By Contact Referred To Contact Pending Review Radiology Diagnoses Strain of right shoulder, initial encounter Bursitis of right shoulder Procedures MRI Upper Extremity Right W JT WO Contrast Shanita Padgett MD [address] [place] [address] Reason Comments Otalgia Reason Comments Med Refill Reason Comments Follow-up 4 month Earache both Reason Comments Follow-up 3 month med check Reason Onset Date Comments Referral 07/14/2023 Dr Babin Reason Onset Date Comments Med Refill 08/16/2023 Ordered Prescriptions (unrec ognized section and content) Scheduled Active and Recently Administ ered Medications (unrecognized section and content) Care Teams (unrecognized sec tion and content) Supervisor Photostat Relationship Specialty Start Date End Date Sharif Dash DO [address] [place] [address] PCP - General 01/26/15 Supervisor Photostat Relationship Specialty Start Date End Date Mario An DO [address] [place], [place] [phone] PCP - General Family Medicine 12/24/22 Supervisor Photostat Relationship Specialty Start Date End Date Mario An DO [address] [place] [id number] PCP - General Family Medicine 12/24/22 Supervisor Photostat Relationship Specialty Start Date End Date Mario An DO [address] [place] [address] PCP - General Family Medicine 12/24/22 Supervisor Photostat Relationship Specialty Start Date End Date Mario An DO [address] [place] [address] PCP - General Family Medicine 12/24/22 Supervisor Photostat Relationship Specialty Start Date End Date Mario An DO [address] [place] [address] PCP - General Family Medicine 12/24/22 (unrecognized sect ion and content) No Status Records FoundNo Status Records FoundNo Status Records Found INFORMATION SOURCE (unrecogn ized section and content) DATE CREATED AUTHOR AUTHOR'S ORGANIZ ATION 07/16/2023 [facility] DATE CREATED AUTHOR AUTHOR'S ORGANIZ ATION 08/19/2023 [facility] FOR RECORDS PERTAINING TO PATIENTS WHO ARE OR HAVE BEEN ENROLLED IN A CHEMICAL DEPENDENCY/SUBSTANCEABUSE PROGRAM, SOME INFORMATION MAY BE OMITTED. This clinical summary was aggregated from multiple sources. Caution should be exercised in using it in the provision of clinical care. This summary normalizes information from multiple sources, and as a consequence, information in this document may materially change the coding, format and clinical context of patient data. In addition, data may be omitted in some cases. CLINICAL DECISIONS SHOULD BE BASED ON THE PRIMARY CLINICAL RECORDS. [facility] [employer] [facility] provides no warranty or guarantee of the accuracy or completeness of information in this document.
[2023-08-28 17:44] LABS: Absolute Lymphocyte Count 1.31 X10^3/uL (0.83-4.51); Absolute Neutrophil Count 4.6 X10^3/uL (2.0-7.7); Basophil# 0.01 X10^3/uL; Basophil% 0.1 % (0-1); Eosinophil# 0.04 X10^3/uL; Eosinophils% 0.6 % (0-5); Hematocrit 36.9 % (40-54); Hemoglobin 12.3 g/dL (13.0-16.5); Lymphocyte # 1.31 X10^3/ul (0.83-4.51); Lymphocyte % 19.6 % (19-41); Mean Corp Hgb Conc 33.3 g/dL (32-36); Mean Corpuscular Hgb 29.7 pg (27.0-32.0); Mean Corpuscular Volume 89.1 fL (80-94); Mean Platelet Vol. 9.3 fl (6.2-12.0); Monocyte% 10.5 % (0-10); NRBC Flagged by Analyzer 0 % (0-5); Neutrophil # 4.57 X10^3/uL (2.7-7.7); Neutrophil % 68.6 % (47-70); Platelet Count 244 K/mm3 (150-450); RBC Distribution Width CV 11.9 % (11.6-14.6); RBC Distribution Width SD 38.2 fl (35.1-43.9); Red Blood Count 4.14 M/mm3 (4.6-6.2); White Blood Count 6.7 K/mm3 (4.4-11.0)
[2023-08-28 18:04] LABS: ALB/GLOB Ratio 0.9 RATIO (0.9-2.4); AST(SGOT) 19 U/L (15-37); Alanine Aminotransfer ALT/SGPT 27 U/L (16-61); Albumin, Serum 3.6 g/dL (3.2-5.0); Alkaline Phosphatase 111 U/L (45-117); Anion Gap 3 (5-15); BUN 22 mg/dL (7-18); Calcium,Total 8.8 mg/dL (8.5-10.1); Chloride 106 mmol/L (98-107); Creatinine, Serum 1.22 mg/dL (0.70-1.30); EST Glomerular Filtration Rate 64 mL/min (>60); Est Glom Filt Rate - Afr Amer 78 mL/min (>60); Globulin 3.8 g/dL (2.2-4.2); Glucose 149 mg/dL (74-106); Protein, Total 7.4 g/dL (6.4-8.2); Sodium Level 136 mmol/L (136-145)
== END | disposition home or self-care (01) ==
LOC: MTLAB 16:06
PROVIDERS: PCP Family Medicine; Referring Provider Internal Medicine Rheumatology; Visit Provider Internal Medicine Rheumatology
DX: M05.70 Rheumatoid arthritis with rheumatoid factor of unspecified site without organ or systems involvement (principal); Z79.899 Other long term (current) drug therapy
CPT/HCPCS: 36415; 80053; 85025

== ENCOUNTER → 2023-11-18 | Outpatient (CLI) | payer OTHER, SELFPAY ==
[2023-11-18 17:32] LABS: Absolute Lymphocyte Count 1.79 X10^3/uL (0.83-4.51); Basophil# 0.02 X10^3/uL; Basophil% 0.3 % (0-1); Eosinophil# 0.05 X10^3/uL; Eosinophils% 0.8 % (0-5); Hematocrit 34.2 % (40-54); Hemoglobin 11.6 g/dL (13.0-16.5); Lymphocyte # 1.79 X10^3/ul (0.83-4.51); Mean Corp Hgb Conc 33.9 g/dL (32-36); Mean Corpuscular Volume 88.4 fL (80-94); Monocyte# 0.69 X10^3/uL; Monocyte% 10.4 % (0-10); NRBC Flagged by Analyzer 0 % (0-5); Neutrophil % 60.1 % (47-70); Platelet Count 327 K/mm3 (150-450); RBC Distribution Width CV 12.5 % (11.6-14.6); RBC Distribution Width SD 40.3 fl (35.1-43.9); Red Blood Count 3.87 M/mm3 (4.6-6.2); White Blood Count 6.6 K/mm3 (4.4-11.0)
[2023-11-18 17:48] LABS: ALB/GLOB Ratio 0.8 RATIO (0.9-2.4); AST(SGOT) 21 U/L (15-37); Alanine Aminotransfer ALT/SGPT 26 U/L (16-61); Albumin, Serum 3.4 g/dL (3.2-5.0); Alkaline Phosphatase 107 U/L (45-117); Anion Gap 6 (5-15); BUN 16 mg/dL (7-18); BUN/Creat Ratio 15.4 RATIO (10-20); Calcium,Total 9.2 mg/dL (8.5-10.1); Chloride 104 mmol/L (98-107); Creatinine, Serum 1.04 mg/dL (0.70-1.30); EST Glomerular Filtration Rate 77 mL/min (>60); Est Glom Filt Rate - Afr Amer 93 mL/min (>60); Globulin 4.4 g/dL (2.2-4.2); Glucose 95 mg/dL (74-106); Potassium 3.5 mmol/L (3.5-5.1); Protein, Total 7.8 g/dL (6.4-8.2); Sodium Level 137 mmol/L (136-145)
== END | disposition home or self-care (01) ==
LOC: MTLAB 15:54
PROVIDERS: PCP Family Medicine; Referring Provider Internal Medicine Rheumatology; Visit Provider Internal Medicine Rheumatology
DX: M05.70 Rheumatoid arthritis with rheumatoid factor of unspecified site without organ or systems involvement (principal); Z79.899 Other long term (current) drug therapy
CPT/HCPCS: 36415; 80053; 85025

== ENCOUNTER → 2024-02-08 | Outpatient (CLI) | payer OTHER, SELFPAY ==
[2024-02-08 18:00] LABS: Absolute Lymphocyte Count 1.58 X10^3/uL (0.83-4.51); Absolute Neutrophil Count 5.7 X10^3/uL (2.0-7.7); Basophil# 0.04 X10^3/uL; Basophil% 0.5 % (0-1); Eosinophil# 0.04 X10^3/uL; Eosinophils% 0.5 % (0-5); Hematocrit 32.8 % (40-54); Hemoglobin 10.6 g/dL (13.0-16.5); Lymphocyte # 1.58 X10^3/ul (0.83-4.51); Lymphocyte % 18.5 % (19-41); Mean Corp Hgb Conc 32.3 g/dL (32-36); Mean Corpuscular Hgb 28.3 pg (27.0-32.0); Mean Corpuscular Volume 87.5 fL (80-94); Mean Platelet Vol. 9.1 fl (6.2-12.0); Monocyte# 0.86 X10^3/uL; Monocyte% 10.1 % (0-10); NRBC Flagged by Analyzer 0 % (0-5); Neutrophil % 66.8 % (47-70); Platelet Count 325 K/mm3 (150-450); RBC Distribution Width CV 13.8 % (11.6-14.6); Red Blood Count 3.75 M/mm3 (4.6-6.2); White Blood Count 8.5 K/mm3 (4.4-11.0)
[2024-02-08 18:34] LABS: ALB/GLOB Ratio 0.7 RATIO (0.9-2.4); AST(SGOT) 22 U/L (15-37); Alanine Aminotransfer ALT/SGPT 26 U/L (16-61); Albumin, Serum 2.9 g/dL (3.2-5.0); Alkaline Phosphatase 92 U/L (45-117); Anion Gap 7 (5-15); BUN 18 mg/dL (7-18); BUN/Creat Ratio 17.8 RATIO (10-20); Calcium,Total 9.3 mg/dL (8.5-10.1); Chloride 103 mmol/L (98-107); Creatinine, Serum 1.01 mg/dL (0.70-1.30); EST Glomerular Filtration Rate 80 mL/min (>60); Est Glom Filt Rate - Afr Amer 97 mL/min (>60); Globulin 4.3 g/dL (2.2-4.2); Glucose 116 mg/dL (74-106); Potassium 3.7 mmol/L (3.5-5.1); Protein, Total 7.2 g/dL (6.4-8.2); Sodium Level 137 mmol/L (136-145)
== END | disposition home or self-care (01) ==
PROVIDERS: PCP Family Medicine; Referring Provider Internal Medicine Rheumatology; Visit Provider Internal Medicine Rheumatology
DX: M05.79 Rheumatoid arthritis with rheumatoid factor of multiple sites without organ or systems involvement (principal); Z79.899 Other long term (current) drug therapy
CPT/HCPCS: 36415; 80053; 85025

== ENCOUNTER → 2024-02-12 | Outpatient (CLI) | payer OTHER, SELFPAY ==
[2024-02-16 18:08] LABS: QNTFERON TB Mitogen Value > 10.00 IU/mL (.); QNTFERON TB Nil Value 0.02 IU/mL (.); QNTFERON TB1+ Ag Value 0.01 IU/mL (.); QNTFERON TB2+ Ag Value 0.08 IU/mL (.); QNTIFERON TB Positive Criteria Negative (Negative)
== END | disposition home or self-care (01) ==
LOC: MTLAB 16:46
PROVIDERS: PCP Family Medicine; Referring Provider Internal Medicine Rheumatology; Visit Provider Internal Medicine Rheumatology
DX: M05.79 Rheumatoid arthritis with rheumatoid factor of multiple sites without organ or systems involvement (principal); Z79.899 Other long term (current) drug therapy
CPT/HCPCS: 36415; 86480

== ENCOUNTER 2024-03-17 20:10 | Emergency (ER) | payer OTHER, SELFPAY ==
[2024-03-17 20:11] VITALS: BP 150/84; PULSE 109; RESP 16; TEMP 36.2; O2SAT 97; BMI 23.8
--- NOTE | 2024-03-17 20:20 | EDS_ITS ---
HPI History of Present Illness HPI Narrative: 59-year-old male history of rheumatoid arthritis currently dealing with a flare. History of prior DVT and diabetes. Currently on no blood thinners. States has had left lower extremity swelling and discomfort for 3+ days. Denies any fall injury or trauma. No recent travel, surgery or immobilization. Denies any chest pain or shortness of breath. Chief Complaint: Edema Informant: patient Occured/Mechanism Mechanism/Context: No injury and No blunt trauma Onset/Context/Timing Onset: Days Context: Gradual Onset Timing: Continuous Quality of Pain: Dull and Aching Current Severity: Mild Maximum Severity: Mild Associated Symptoms Associated Symptoms: Negative for Parasthesia, Weakness or Loss of Funtion Narrative Narrative: 59-year-old male history of rheumatoid arthritis with left lower leg discomfort and swelling. Prior DVT history. No recent travel, surgery immobilization. No chest pain or shortness of breath. Currently not on any blood thinners. Prior similar symptoms: Yes Recent Illness/Hospitalization: No PFSH PFS Medical History (Updated 03/17/24 @ 21:[address] Harley Munzo MD) History of ankle fracture History of broken finger DM (diabetes mellitus) Rheumatoid arteritis Home Medications ?Medication ?Instructions ?Recorded ?Last Taken ?Type atorvastatin 10 mg tablet 10 mg PO DAILY 03/17/24 Unknown History doxycycline hyclate 100 mg capsule 100 mg PO BID 03/17/24 Unknown History finasteride 5 mg tablet 5 mg PO DAILY 03/17/24 Unknown History meloxicam 15 mg tablet 15 mg PO DAILY 03/17/24 Unknown History oxycodone 5 mg capsule 5 mg PO Q6H PRN pain 4 days #14 03/17/24 Unknown Rx caps sitagliptin phos 100 mg-metformin 1 tab PO DAILY 03/17/24 Unknown History ER 1,000 mg tablet,extend rel 24h mp (Janumet XR) sulfasalazine 500 mg tablet 1 g PO BID 03/17/24 Unknown History (Azulfidine) tadalafil 10 mg tablet 10 mg PO DAILY PRN intercourse 03/17/24 Unknown History tofacitinib 11 mg tablet,extended 11 mg PO DAILY 03/17/24 Unknown History release 24 hr (Xeljanz XR) tramadol 50 mg tablet 50 mg PO TID PRN 03/17/24 Unknown History Allergy/AdvReac Type Severity Reaction Status Date / Time No Known Allergies Allergy Verified 03/17/24 20:11 Social History Smoking Status: Former smoker ROS ROS ED ROS Narrative Left lower leg swelling. No recent illness. Constitutional Constitutional ED: Denies chills or fever(s) Eyes Eyes: Denies blurry vision Cardiovascular Cardiovascular: Denies chest pain Respiratory/Chest Respiratory/Chest: Denies cough or dyspnea Gastrointestinal Gastrointestinal: Denies abdominal pain, diarrhea, nausea or vomiting Genitourinary Genitourinary ED: Denies dysuria or hematuria Musculoskeletal Musculoskeletal: Denies arthralgias Integumentary Denies abscess Neurologic Neurologic: Denies headache(s) Psychiatric Psychiatric: Denies anxiety Endocrine Endocrinology: Denies polydipsia Hematologic/Lymphatic Hematologic/Lymphatic: Denies easy bleeding Allergic/Immunologic Allergic/Immunologic ED: Denies mouth swelling, tongue swelling or urticaria EXAM Physical Exam Narrative Exam Narrative: Well-appearing 59-year-old male. Vital signs stable afebrile. Pulse ox 97% on room air no hypoxia. H EENT exam unremarkable. Myt[employer] members. Neck nontender no JVD. No lymphadenopathy. Lungs at auscultation bilaterally. Heart regular rhythm rate of 105 no murmur. Chest wall ribs nontender. Abdomen soft nontender. Moving all 4 extremities. Left leg has 1-2+ pitting edema. There is no localized tenderness. No cords. No cellulitis. No infected joints. He can flex extend both his hip, knee and ankle. Normal dorsi plantarflexion of his foot. Normal DP pulse. There is no cellulitis. There is no inguinal lymphadenopathy. Back nontender. Neurologically is awake and alert. Const Vital Signs: 03/17/24 20:11 03/17/24 20:19 03/17/24 21:28 Temperature 97.1 F L 98.5 F Temperature Source Temporal Pulse Rate 109 H 106 H Respiratory Rate 16 18 Respiratory Effort Normal Non-Labored Respiratory Pattern Normal Blood Pressure 150/84 H 131/73 H Blood Pressure Mean 106 92 Pulse Ox 97 95 Oxygen Delivery Method Room Air Positive well nourished and well developed; Negative for obese, cachectic, contractures or unkempt General Appearance ED: well developed and NAD; Negative for unkempt, cachectic or contractures Nutritional Appearance: Negative for cachectic or obese HEENT Reports moist mucous membranes normocephalic and atraumatic; Negative for trauma or tenderness Eyes PERRL Neck full ROM and supple Thyroid: Negative for tender Lymph Lymphatic: Negative for other Chest Wall inspection of chest normal and palpation of chest normal Chest: Negative for other Resp normal respiratory effort, no retractions and clear to auscultation bilaterally Auscultation: Negative for rales, rhonchi, wheezes or diminished lung sounds Cardio regular rhythm, S1 normal heart sound, S2 normal heart sound and no murmurs; Negative for regular rate Rate: tachycardic GI non-tender, non-distended and no masses Inspection: Negative for abdominal distention Auscultation: normoactive bowel sounds Palpation: soft; Negative for tender, guarding or rebound tenderness present Back/Spine no CVA tenderness Extremity normal to inspection and full ROM Extremity Narrative: Except left leg 1-2+ pitting edema. From the mid thigh down to the foot. Normal DP pulse. Normal range of motion. No cords. No cellulitis. No septic joints. No inguinal lymphadenopathy. No signs of trauma. General Extremety ED: Yes edema General Extremity: edema Neuro oriented x3, CN's II-XII intact bilaterally and moves all extremities Sensorium / Orientation: alert, oriented to person, oriented to place and oriented to time; Negative for orientation impaired, confused, lethargic or stuporous Motor Exam: strength 5/5 throughout Psych mental status grossly normal Appearance: Negative for unkempt Speech: No other Mood & Affect: Negative for anxious Skin no wounds Lesions: no lesions Rashes: no rashes MDM MDM MDM Narrative Medical decision making narrative: 59-year-old male with atraumatic left leg swelling and edema. History of prior DVT. Noninvasive studies of the left leg to be obtained. Currently no signs of infection. I do not think he needs any labs at this time. Repeat exam unchanged at 9:23 PM. Legs unchanged. I discussed with the patient is not of a study was negative per the laboratory development technician. He will be discharged home with outpatient follow-up. Patient did request something for his rheumatoid arthritis flare and pain prior to discharge and given 2 [place]. Did send an electronic prescription to his pharmacy for oxycodone No. 14 no refill. History & Record Review Discussion w/independent historian: Patient Additional record(s) reviewed:: Prior inpatient record, Prior outpatient record, Prior ED visit and Prior labs Radiography Diagnostic Testing: Left leg noninvasive study as per the laboratory development technician shows Discharge Plan Triage Chief Complaint: Edema ED Provider: Harley Munoz Dx/Rx/DC Orders Clinical Impression: Edema of left lower extremity, Hx of rheumatoid arthritis, History of diabetes mellitus, History of deep vein thrombosis Instructions: ED Peripheral Edema, Unilateral Prescriptions: New oxycodone 5 mg capsule 5 mg PO Q6H PRN (Reason: pain) 4 Days Qty: 14 0RF No Action Janumet XR 100-1,000 mg tablet, ER multiphase 24 hr 1 tab PO DAILY doxycycline hyclate 100 mg capsule 100 mg PO BID atorvastatin 10 mg tablet 10 mg PO DAILY meloxicam 15 mg tablet 15 mg PO DAILY finasteride 5 mg tablet 5 mg PO DAILY tadalafil 10 mg tablet 10 mg PO DAILY PRN (Reason: intercourse) sulfasalazine [Azulfidine] 500 mg tablet 1 g PO BID Rx Instructions: give with food (meal/snack) tramadol 50 mg tablet 50 mg PO TID PRN Xeljanz XR 11 mg tablet extended release 24 hr 11 mg PO DAILY Primary Care Provider: Mario An Referrals: Mario An DO [Primary Care Provider] - 3-5 Days if not improving Activity Restrictions/Additional Instructions: Elevate your leg to decrease swelling. Your ultrasound showed no signs of a blood clot. Follow-up with your doctor if not improving. Print Language: Maori Disposition Disposition: Home, Self Care
--- NOTE | 2024-03-17 20:21 | US_ITS ---
EXAM: US DUPLEX LEFT LOWER EXTREMITY VEINS CLINICAL INDICATION: LT CALF PAIN AND SWELLING TECHNIQUE: Real-time duplex ultrasound scan of the left lower extremity veins integrating B-mode two-dimensional vascular structure, Doppler spectral analysis, color flow Doppler imaging and compression. COMPARISON: No relevant prior studies available. FINDINGS: DEEP VEINS: Unremarkable. No DVT in the visualized common femoral, femoral, proximal deep femoral or popliteal veins. The veins demonstrate normal color flow, are normally compressible, with normal phasic flow and/or augmentation response. SUPERFICIAL VEINS: Unremarkable. No thrombus in the visualized great saphenous vein. SOFT TISSUES: No acute findings. No popliteal cyst. OTHER FINDINGS: There is an anechoic area posterior medial left knee that measures 2.4 x 1.3 x 1.8 cm which may represent a cyst. US/Venous Duplex Imag/Limited/Uni IMPRESSION: No acute findings in the left lower extremity veins. Electronically Signed: Petar Pinedo MD at 21:36 EDT ,
[2024-03-17 21:28] VITALS: BP 131/73; PULSE 106; RESP 18; TEMP 36.9; O2SAT 95
[2024-03-17] MEDS: HYDROcodone Bitartrate/Apap 5/325 Tablet PO (21:33)
== END 2024-03-17 21:36 | disposition home or self-care (01) ==
PROVIDERS: Emergency Provider Emergency Medicine; PCP Family Medicine; Visit Provider Emergency Medicine
DX: R60.0 Localized edema (principal); M06.9 Rheumatoid arthritis, unspecified; E11.9 Type 2 diabetes mellitus without complications; Z87.891 Personal history of nicotine dependence; Z79.899 Other long term (current) drug therapy; Z86.718 Personal history of other venous thrombosis and embolism
CPT/HCPCS: 93971; 99282

== ENCOUNTER → 2024-05-03 | Outpatient (CLI) | payer OTHER, SELFPAY ==
[2024-05-03 15:20] LABS: Absolute Neutrophil Count 6.7 X10^3/uL (2.0-7.7); Basophil# 0.03 X10^3/uL; Basophil% 0.3 % (0-1); Eosinophil# 0.03 X10^3/uL; Eosinophils% 0.3 % (0-5); Hematocrit 33.4 % (40-54); Hemoglobin 10.3 g/dL (13.0-16.5); Lymphocyte % 14.4 % (19-41); Mean Corp Hgb Conc 30.8 g/dL (32-36); Mean Corpuscular Hgb 27.2 pg (27.0-32.0); Mean Corpuscular Volume 88.1 fL (80-94); Mean Platelet Vol. 8.9 fl (6.2-12.0); Monocyte# 0.75 X10^3/uL; Monocyte% 8.3 % (0-10); NRBC Flagged by Analyzer 0 % (0-5); Neutrophil # 6.69 X10^3/uL (2.7-7.7); Neutrophil % 73.9 % (47-70); Platelet Count 405 K/mm3 (150-450); RBC Distribution Width CV 14.6 % (11.6-14.6); RBC Distribution Width SD 46.5 fl (35.1-43.9); Red Blood Count 3.79 M/mm3 (4.6-6.2); White Blood Count 9.1 K/mm3 (4.4-11.0)
[2024-05-03 15:58] LABS: ALB/GLOB Ratio 0.7 RATIO (0.9-2.4); AST(SGOT) 15 U/L (15-37); Alanine Aminotransfer ALT/SGPT 15 U/L (16-61); Albumin, Serum 3.1 g/dL (3.2-5.0); Alkaline Phosphatase 101 U/L (45-117); Anion Gap 5 (5-15); BUN 12 mg/dL (7-18); BUN/Creat Ratio 14.3 RATIO (10-20); Calcium,Total 9.5 mg/dL (8.5-10.1); Chloride 100 mmol/L (98-107); Creatinine, Serum 0.84 mg/dL (0.70-1.30); EST Glomerular Filtration Rate 98 mL/min (>60); Est Glom Filt Rate - Afr Amer 119 mL/min (>60); Globulin 4.3 g/dL (2.2-4.2); Glucose 259 mg/dL (74-106); Potassium 3.8 mmol/L (3.5-5.1); Protein, Total 7.4 g/dL (6.4-8.2); Sodium Level 135 mmol/L (136-145)
== END | disposition home or self-care (01) ==
LOC: MTLAB 12:58
PROVIDERS: PCP Family Medicine; Referring Provider Internal Medicine Rheumatology; Visit Provider Internal Medicine Rheumatology
DX: M05.79 Rheumatoid arthritis with rheumatoid factor of multiple sites without organ or systems involvement (principal); Z79.899 Other long term (current) drug therapy
CPT/HCPCS: 36415; 80053; 85025

== ENCOUNTER → 2024-05-31 | Outpatient (CLI) | payer OTHER, SELFPAY ==
[2024-05-31 18:46] LABS: Absolute Lymphocyte Count 1.03 X10^3/uL (0.83-4.51); Absolute Neutrophil Count 4.7 X10^3/uL (2.0-7.7); Basophil# 0.03 X10^3/uL; Basophil% 0.5 % (0-1); Eosinophil# 0.05 X10^3/uL; Eosinophils% 0.8 % (0-5); Hematocrit 34.2 % (40-54); Hemoglobin 10.8 g/dL (13.0-16.5); Lymphocyte # 1.03 X10^3/ul (0.83-4.51); Lymphocyte % 15.5 % (19-41); Mean Corp Hgb Conc 31.6 g/dL (32-36); Mean Corpuscular Hgb 27.6 pg (27.0-32.0); Mean Corpuscular Volume 87.2 fL (80-94); Mean Platelet Vol. 9.3 fl (6.2-12.0); Monocyte# 0.69 X10^3/uL; Monocyte% 10.4 % (0-10); NRBC Flagged by Analyzer 0 % (0-5); Neutrophil % 70.8 % (47-70); Platelet Count 372 K/mm3 (150-450); RBC Distribution Width CV 14.9 % (11.6-14.6); RBC Distribution Width SD 47.4 fl (35.1-43.9); Red Blood Count 3.92 M/mm3 (4.6-6.2); White Blood Count 6.6 K/mm3 (4.4-11.0)
[2024-05-31 19:00] LABS: ALB/GLOB Ratio 0.6 RATIO (0.9-2.4); AST(SGOT) 21 U/L (15-37); Alanine Aminotransfer ALT/SGPT 31 U/L (16-61); Alkaline Phosphatase 134 U/L (45-117); Anion Gap 6 (5-15); BUN 12 mg/dL (7-18); BUN/Creat Ratio 13.8 RATIO (10-20); Calcium,Total 9.7 mg/dL (8.5-10.1); Chloride 103 mmol/L (98-107); Creatinine, Serum 0.87 mg/dL (0.70-1.30); EST Glomerular Filtration Rate 95 mL/min (>60); Est Glom Filt Rate - Afr Amer 114 mL/min (>60); Globulin 4.8 g/dL (2.2-4.2); Glucose 180 mg/dL (74-106); Protein, Total 7.8 g/dL (6.4-8.2); Sodium Level 136 mmol/L (136-145)
== END | disposition home or self-care (01) ==
LOC: MTLAB 14:56
PROVIDERS: PCP Family Medicine; Referring Provider Internal Medicine Rheumatology; Visit Provider Internal Medicine Rheumatology
DX: M05.79 Rheumatoid arthritis with rheumatoid factor of multiple sites without organ or systems involvement (principal); Z79.899 Other long term (current) drug therapy; L30.9 Dermatitis, unspecified; L71.9 Rosacea, unspecified
CPT/HCPCS: 36415; 80053; 85025